=== PATIENT | female | born 1950 | race Caucasian/White ===

== ENCOUNTER 2017-10-07 10:11 | Emergency (ER) | payer BC, MEDICARE ==
[2017-10-07 10:27] VITALS: RESP 18; TEMP 98.1
--- NOTE | 2017-10-07 10:40 | ED ---
General Adult HPI - General Chief complaint: Fall Stated complaint: Fall Time Seen by Provider: 10/07/17 10:30 Source: patient, RN notes reviewed Mode of arrival: ambulatory Limitations: no limitations - History of Present Illness Initial comments: Patient 67-year-old female presented to the emergency room today with a chief complaint of a fall that occurred 1 week ago. She states she got out of the shower when she slipped falling down onto the ground. Patient does not that she landed on the right knee. She does admit that she went to urgent care and had x-rays obtained of the right knee she was told everything was negative. Patient states still experiencing pain to the right knee worse with certain movements and with bearing weight. Patient also admits that over the last 4 days she's been expressing some pain to the left lateral ribs. Patient states it's worse with certain movements or if she coughs or sneezes. Patient denies any other complaints or symptoms. Patient denies any recent fever, chills, shortness of breath, chest pain, back pain, abdominal pain, nausea or vomiting, constipation or diarrhea, headaches or visual changes, or any other complaints. - Related Data Allergies Allergy/AdvReac Type Severity Reaction Status Date / Time No Known Allergies Allergy Verified 10/07/17 10:27 Review of Systems ROS Statement: Those systems with pertinent positive or pertinent negative responses have been documented in the HPI. ROS Other: All systems not noted in ROS Statement are negative. Past Medical History Additional Past Medical History / Comment(s): osteoporosis History of Any Multi-Drug Resistant Organisms: MRSA Date of last positivie culture/infection: 2011 MDRO Source:: leg Past Surgical History: Orthopedic Surgery Additional Past Surgical History / Comment(s): left ankle, right knee, right wrist Past Psychological History: No Psychological Hx Reported Smoking Status: Current every day smoker Past Alcohol Use History: Occasional Past Drug Use History: None Reported General Exam - General Exam Comments Initial Comments: General: The patient is awake and alert, in no distress, and does not appear acutely ill. Eye: Pupils are equal, round and reactive to light, extra-ocular movements are intact. No nystagmus. There is normal conjunctiva bilaterally. No signs of icterus. Ears, nose, mouth and throat: There are moist mucous membranes and no oral lesions. Neck: The neck is supple, there is no tenderness or JVD. Cardiovascular: There is a regular rate and rhythm. No murmur, rub or gallop is appreciated. Respiratory: Lungs are clear to auscultation, respirations are non-labored, breath sounds are equal. No wheezes, stridor, rales, or rhonchi. Musculoskeletal: Normal ROM. Mild tenderness over the anterior aspect of the right knee on exam. Patient does have tenderness over the left lateral ribs. No step-off deformity. Strength 5/5. Sensation intact. Pulses equal bilaterally 2+. Neurological: A&O x 3. CN II-XII intact, There are no obvious motor or sensory deficits. Coordination appears grossly intact. Speech is normal. Skin: Skin is warm and dry and no rashes or lesions are noted. Psychiatric: Cooperative, appropriate mood & affect, normal judgment. Limitations: no limitations Course Vital Signs 10/07/17 10:20 Temperature 98.1 F Pulse Rate 87 Respiratory 18 Rate Blood Pressure 129/86 O2 Sat by Pulse 97 Oximetry Medical Decision Making - Medical Decision Making Patient reexamined at this time shows no signs of distress. Patient does have tenderness over the left lateral ribs on exam. X-ray revealing no displaced rib fracture. Patient's x-ray of the left knee is unremarkable. She is advised follow-up with orthopedics for left knee. Be treated for rib fracture given incentive spirometer. Advised Tylenol/ibuprofen for pain control. Advised limited range of motion the area should movements and if she needs to cough or sneeze. Advised returning if any symptoms increase or worsen or for any other concerns. Disposition Clinical Impression: Rib fracture, Knee pain, Fall Disposition: HOME SELF-CARE Condition: Good Instructions: Rib Fracture (ED) Additional Instructions: Please use medication as discussed. Please follow-up with orthopedic/family doctor in the next 2-5 days of symptoms have not improved. Please return to emergency room if the symptoms increase or worsen or for any other concerns. Is patient prescribed a controlled substance at d/c from ED?: No Referrals: Elmer Combs MD [Primary Care Provider] - 1-2 days Time of Disposition: 11:42
--- NOTE | 2017-10-07 11:24 | XR ---
EXAMINATION TYPE: XR knee complete RT DATE OF EXAM: 10/07/2017 CLINICAL HISTORY: Right knee pain after a fall TECHNIQUE: Three views of the right knee are obtained. COMPARISON: None. FINDINGS: There is no acute fracture/dislocation evident in right knee. Surgical fixation of a prior right patellar fracture is seen. Very small fabellae are incidentally noted. Marginal osteophytosis is seen of the inferior patellar pole and very small osteophytes of the medial and lateral compartmen ts. The overlying soft tissue appears unremarkable. IMPRESSION: There is no acute fracture or dislocation in the right knee. Postsurgical changes the pa tella and mild tricompartmental arthrosis.
--- NOTE | 2017-10-07 11:27 | XR ---
EXAMINATION TYPE: XR ribs LT w pa chest xray DATE OF EXAM: 10/07/2017 CLINICAL HISTORY: Left rib pain after a fall TECHNIQUE: Single frontal view of the chest is obtained. Additionally frontal and lateral views of th e left ribs were obtained. COMPARISON: None FINDINGS: There is no focal air space opacity, pleural effusion, or pneumothorax seen. The cardiac silhouette size is within normal limits. The osseous structures are grossly intact. No acute displa alon left rib fracture is seen. No callused healed rib fracture deformity is identified. Mild biapical pleural-parenchymal thickening is noted. IMPRESSION: No acute cardiopulmonary process. No acute displaced left rib fracture or healed calluse d rib fracture deformity
[2017-10-07 11:55] VITALS: BP 120/88; PULSE 63
== END 2017-10-07 11:55 | disposition home or self-care (01) ==
LOC: EC 10:11
DX: S22.32XA Fracture of one rib, left side, initial encounter for closed fracture (principal); M25.561 Pain in right knee; F17.200 Nicotine dependence, unspecified, uncomplicated; Z86.14 Personal history of Methicillin resistant Staphylococcus aureus infection; W01.0XXA Fall on same level from slipping, tripping and stumbling without subsequent striking against object, initial encounter; Y92.009 Unspecified place in unspecified non-institutional (private) residence as the place of occurrence of the external cause
CPT/HCPCS: 99283

== ENCOUNTER 2018-01-17 17:00 | Emergency (ER) | payer MEDICARE ==
[2018-01-17 18:24] VITALS: TEMP 98.5
[2018-01-17] MEDS ORDERED: HYDROcodone/APAP 5-325MG 1 EACH TAB PO STA ×2 (20:22→21:14)
[2018-01-17] MEDS ORDERED: RX INFO: IV CONTRAST WAS GIVEN 1 EACH MISC MISCELLANE PRN (21:11)
[2018-01-17 21:39] LABS: Basophils # (A) 0.1 k/uL (0-0.2); Basophils % (A) 1 %; Eosinophils # (A) 0.2 k/uL (0-0.7); Eosinophils % (A) 3 %; HCT 41.2 % (34.0-46.0); HGB 13.9 gm/dL (11.4-16.0); Lymphocytes # (A) 1.7 k/uL (1.0-4.8); Lymphocytes % (A) 20 %; MCH 33.1 pg (25.0-35.0); MCHC 33.7 g/dL (31.0-37.0); MCV 98.4 fL (80.0-100.0); Mean Platelet Volume 7.4; Monocytes # (A) 0.4 k/uL (0-1.0); Monocytes % (A) 5 %; Neutrophils % (A) 70 %; Platelet Count 245 k/uL (150-450); RBC 4.19 m/uL (3.80-5.40); RDW 12.7 % (11.5-15.5); WBC 8.5 k/uL (3.8-10.6)
--- NOTE | 2018-01-17 21:40 | ED ---
General Adult HPI - General Chief complaint: Extremity Injury, Lower Stated complaint: hip & leg pain Source: patient, RN notes reviewed, old records reviewed Mode of arrival: EMS Limitations: no limitations - History of Present Illness Initial comments: 67-year-old female patient with no pertinent past history presents to ED with 2 days of left hip/thigh pain. Patient states that she has not suffered any recent trauma, falls, or heavy lifting. Patient was seen today at [facility]. Patient presented at this hospital for a previous is scheduled appointment to have a upper and lower extremity venous Doppler, as well as YAMILKA. Patient reports that her venous Doppler was negative for DVT, YAMILKA did not display any peripheral artery disease. Patient was having this left hip and thigh pain at the time of her appointment earlier today, so she presented to the ED. Patient states that at the ED they evaluated her, give her plain films, give her Toradol shot, she states that it did not relieve any of her pain. Patient presents here for pain control. Patient denies fever/ chills, nausea vomiting diarrhea, chest pain, shortness breath, abdominal pain, back pain, weakness, paresthesias, loss of bowel or bladder control. Systemic: Pt denies fatigue, myalgia, fever/chills, rash. Pt denies weakness, night sweats, weight loss. Neuro: Pt denies headache, visual disturbances, syncope or pre-syncope. HEENT: Pt denies ocular discharge or irritation, otalgia, rhinorrhea, pharyngitis or notable lymphadenopathy. Cardiopulmonary: Pt denies chest pain, SOB, heart palpitations, dyspnea on exertion. Abdominal/GI: Pt denies abdominal pain, n/v/d. : Pt denies dysuria, burning w/ urination, frequency/urgency. Denies new onset urinary or bowel incontinence. MSK: Pt denies myalgia, loss of strength or function in extremities. - Related Data Previous Rx's Medication Instructions Recorded Ibuprofen [Motrin] 600 mg PO Q6HR PRN #20 day 01/18/18 Allergies Allergy/AdvReac Type Severity Reaction Status Date / Time No Known Allergies Allergy Verified 01/17/18 18:24 Review of Systems ROS Statement: Those systems with pertinent positive or pertinent negative responses have been documented in the HPI. ROS Other: All systems not noted in ROS Statement are negative. Past Medical History Additional Past Medical History / Comment(s): osteoporosis History of Any Multi-Drug Resistant Organisms: MRSA Date of last positivie culture/infection: 2011 MDRO Source:: leg Past Surgical History: Orthopedic Surgery Additional Past Surgical History / Comment(s): left ankle, right knee, right wrist Past Psychological History: No Psychological Hx Reported Smoking Status: Current every day smoker Past Alcohol Use History: Occasional Past Drug Use History: None Reported General Exam - General Exam Comments Initial Comments: Constitutional: NAD, AOX3, Pt has pleasant affect. HEENT: NC/AT, trachea midline, neck supple, no lymphadenopathy. Posterior pharynx non erythematous, without exudates. External ears appear normal, without discharge. Mucous membranes moist. Eyes PERRLA, EOM intact. There is no scleral icterus. No pallor noted. Cardiopulmonary: RRR, no murmurs, rubs or gallops, no JVD noted. Lungs CTAB in anterior and posterior palmer. No peripheral edema. Abdominal exam: Abdomen soft and non-distended. Abdomen non-tender to palpation in all 4 quadrants. Bowel sounds active in LLQ. No hepatosplenomegaly. Neuro: CN II-XII intact. MSK: Dorsalis pedis, posterior tibialis pulse +2 bilaterally. No cervical, thoracic, lumbar spine tenderness to palpation. No paraspinal tenderness to palpation. Hips bilaterally no tenderness to palpation. Left lateral thigh mildly tender to palpation. Patient ambulatory. Patient has full sensation in lower extremities. 5 out of 5 psoas and quadriceps strength bilaterally. 2 out of 4 patellar and occasional reflex bilaterally. Torso, back, lower extremities examined extensively, no erythema, no streaking, no cellulitis, no discharge. Posterior calf and thigh nontender to palpation. Lenore sign negative bilaterally. No unilateral leg swelling, no erythema. Limitations: no limitations Course Vital Signs 01/17/18 01/17/18 18:19 21:48 Temperature 98.5 F Pulse Rate 78 74 Respiratory 16 18 Rate Blood Pressure 169/65 147/77 O2 Sat by Pulse 94 L 99 Oximetry Medical Decision Making - Medical Decision Making 67-year-old female patient presents to ED with atraumatic left hip, thigh pain. Patient was seen at [facility] earlier in the day for this problem, no acute findings were found at that visit per patient. Patient presents to ED today, primarily for pain control, further evaluation. Physical exam displayed Dorsalis pedis, posterior tibialis pulse +2 bilaterally. No cervical, thoracic , lumbar spine tenderness to palpation. No paraspinal tenderness to palpation. Hips bilaterally no tenderness to palpation. Left lateral thigh mildly tender to palpation. Patient ambulatory. Patient has full sensation in lower extremities. 5 out of 5 psoas and quadriceps strength bilaterally. 2 out of 4 patellar and occasional reflex bilaterally. Torso, back, lower extremities examined extensively, no erythema, no streaking, no cellulitis, no discharge. Posterior calf and thigh nontender to palpation. Lenore sign negative bilaterally. No unilateral leg swelling, no erythema. CBC and CMP unremarcable. Plain film of left hip did not display acute process. Femur CT did not display acute process. Bilateral duplex venous ultrasound not displaying DVT. Because of this pain likely musculoskeletal. Patient to be given a referral to orthopedic surgeon for further evaluation. Patient given strict return precautions patient to return if any signs symptoms develop including, worsening pain, fever/chills, nausea vomiting diarrhea, loss of bowel or bladder control, any other new signs or symptoms. Case discussed with Dr. Rivers. - Lab Data Result diagrams: 01/17/18 21:28 01/17/18 21:28 Lab Results 01/17/18 01/17/18 Range/Units 21:28 21:28 WBC 8.5 (3.8-10.6) k/uL RBC 4.19 (3.80-5.40) m/uL Hgb 13.9 (11.4-16.0) gm/dL Hct 41.2 (34.0-46.0) % MCV 98.4 (80.0-100.0) fL MCH 33.1 (25.0-35.0) pg MCHC 33.7 (31.0-37.0) g/dL RDW 12.7 (11.5-15.5) % Plt Count 245 (150-450) k/uL Neutrophils % 70 % Lymphocytes % 20 % Monocytes % 5 % Eosinophils % 3 % Basophils % 1 % Neutrophils # 6.0 (1.3-7.7) k/uL Lymphocytes # 1.7 (1.0-4.8) k/uL Monocytes # 0.4 (0-1.0) k/uL Eosinophils # 0.2 (0-0.7) k/uL Basophils # 0.1 (0-0.2) k/uL Sodium 139 (137-145) mmol/L Potassium 4.0 (3.5-5.1) mmol/L Chloride 109 H (98-107) mmol/L Carbon Dioxide 24 (22-30) mmol/L Anion Gap 6 mmol/L BUN 14 (7-17) mg/dL Creatinine 0.83 (0.52-1.04) mg/dL Est GFR (CKD-EPI)AfAm 86 (>60 ml/min/1.73 sqM) Est GFR (CKD-EPI)NonAf 75 (>60 ml/min/1.73 sqM) Glucose 120 H (74-99) mg/dL Calcium 9.8 (8.4-10.2) mg/dL Total Bilirubin 0.5 (0.2-1.3) mg/dL AST 29 (14-36) U/L ALT 44 (9-52) U/L Alkaline Phosphatase 64 (38-126) U/L Total Protein 6.4 (6.3-8.2) g/dL Albumin 4.0 (3.5-5.0) g/dL Disposition Clinical Impression: Hip pain Disposition: HOME SELF-CARE Condition: Good Instructions: Hip Pain (ED), Arthralgia (ED) Additional Instructions: Patient to adhere to previously discussed treatment plan and will take medication(s) as directed. Patient to follow up with PCP in 1-2 days. Patient to return to ED if symptoms do not improve. Prescriptions: Ibuprofen [Motrin] 600 mg PO Q6HR PRN #20 day PRN Reason: Pain Is patient prescribed a controlled substance at d/c from ED?: No Referrals: Elmer Combs MD [Primary Care Provider] - 1-2 days Neo Rodas DO [Doctor of Osteopathic Medicine] - 1-2 days Time of Disposition: 00:06
[2018-01-17 21:48] LABS: Calcium 9.8 mg/dL (8.4-10.2); Total Bilirubin 0.5 mg/dL (0.2-1.3); Total Protein 6.4 g/dL (6.3-8.2)
[2018-01-17 21:49] VITALS: BP 147/77; PULSE 74; RESP 18
--- NOTE | 2018-01-17 22:40 | XR ---
EXAMINATION TYPE: XR Hip Complete LT DATE OF EXAM: 01/17/2018 COMPARISON: NONE HISTORY: Hip pain TECHNIQUE: 2 views FINDINGS: I see no fracture nor dislocation. Acetabulum is intact. Proximal left femur is intact. The re is no sign of hip dysplasia. IMPRESSION: Negative left hip exam.
--- NOTE | 2018-01-17 22:58 | CT ---
EXAMINATION TYPE: CT femur LT w con DATE OF EXAM: 01/17/2018 COMPARISON: None HISTORY: LT femur pain no injury CT DLP: 428.3 mGycm Automated exposure control for dose reduction was used. CONTRAST: Performed with IV Contrast, patient injected with 100 mL of Isovue 300. FINDINGS: Multiple axial sections were obtained from the level of the acetabulum to the distal femoral metaphys is with intravenous contrast. The left hip joint is intact. Acetabulum is intact. I see no hip fracture. The visualized femur appea rs intact without evidence of a fracture. I see no focal bone destruction. I see no evidence of a sof t tissue mass. There is some atherosclerotic calcification in the distal left femoral artery. There i s no pathologic fluid collection. IMPRESSION: MILD ATHEROSCLEROTIC VASCULAR DISEASE. NO EVIDENCE OF A SOFT TISSUE MASS. NO FRACTURE. I DO NOT SEE A CAUSE FOR FEMUR PAIN.
--- NOTE | 2018-01-17 23:58 | US ---
EXAMINATION TYPE: US venous doppler duplex LE BI DATE OF EXAM: 01/17/2018 11:38 PM COMPARISON: NONE CLINICAL HISTORY: Pain. Pain left hip. SIDE PERFORMED: Bilateral TECHNIQUE: The lower extremity deep venous system is examined utilizing real time linear array sonog kody with graded compression, doppler sonography and color-flow sonography. VESSELS IMAGED: External Iliac Vein (EIV) Common Femoral Vein Deep Femoral Vein Greater Saphenous Vein * Femoral Vein Popliteal Vein Small Saphenous Vein * Proximal Calf Veins (* superficial vessels) Right Leg: Negative for DVT Left Leg: Negative for DVT No evidence of DVT bilateral legs. IMPRESSION: Normal bilateral leg duplex venous sonogram.
--- NOTE | 2018-01-18 00:08 | ED ---
Medical Decision Making - Medical Decision Making driving home - Lab Data Result diagrams: 01/17/18 21:28 01/17/18 21:28 Lab Results 01/17/18 01/17/18 Range/Units 21:28 21:28 WBC 8.5 (3.8-10.6) k/uL RBC 4.19 (3.80-5.40) m/uL Hgb 13.9 (11.4-16.0) gm/dL Hct 41.2 (34.0-46.0) % MCV 98.4 (80.0-100.0) fL MCH 33.1 (25.0-35.0) pg MCHC 33.7 (31.0-37.0) g/dL RDW 12.7 (11.5-15.5) % Plt Count 245 (150-450) k/uL Neutrophils % 70 % Lymphocytes % 20 % Monocytes % 5 % Eosinophils % 3 % Basophils % 1 % Neutrophils # 6.0 (1.3-7.7) k/uL Lymphocytes # 1.7 (1.0-4.8) k/uL Monocytes # 0.4 (0-1.0) k/uL Eosinophils # 0.2 (0-0.7) k/uL Basophils # 0.1 (0-0.2) k/uL Sodium 139 (137-145) mmol/L Potassium 4.0 (3.5-5.1) mmol/L Chloride 109 H (98-107) mmol/L Carbon Dioxide 24 (22-30) mmol/L Anion Gap 6 mmol/L BUN 14 (7-17) mg/dL Creatinine 0.83 (0.52-1.04) mg/dL Est GFR (CKD-EPI)AfAm 86 (>60 ml/min/1.73 sqM) Est GFR (CKD-EPI)NonAf 75 (>60 ml/min/1.73 sqM) Glucose 120 H (74-99) mg/dL Calcium 9.8 (8.4-10.2) mg/dL Total Bilirubin 0.5 (0.2-1.3) mg/dL AST 29 (14-36) U/L ALT 44 (9-52) U/L Alkaline Phosphatase 64 (38-126) U/L Total Protein 6.4 (6.3-8.2) g/dL Albumin 4.0 (3.5-5.0) g/dL Disposition Clinical Impression: Hip pain Disposition: HOME SELF-CARE Condition: Good Instructions: Arthralgia (ED), Hip Pain (ED) Additional Instructions: Patient to adhere to previously discussed treatment plan and will take medication(s) as directed. Patient to follow up with PCP in 1-2 days. Patient to return to ED if symptoms do not improve. Prescriptions: Ibuprofen [Motrin] 600 mg PO Q6HR PRN #20 day PRN Reason: Pain Is patient prescribed a controlled substance at d/c from ED?: No Referrals: Elmer Combs MD [Primary Care Provider] - 1-2 days Neo Rodas DO [Doctor of Osteopathic Medicine] - 1-2 days
== END 2018-01-18 00:10 | disposition home or self-care (01) ==
LOC: EC 17:00
DX: M25.552 Pain in left hip (principal); M79.652 Pain in left thigh; M81.0 Age-related osteoporosis without current pathological fracture; F17.200 Nicotine dependence, unspecified, uncomplicated; Z86.14 Personal history of Methicillin resistant Staphylococcus aureus infection
CPT/HCPCS: 36415; 80053; 85025; 73502; 93970; 73701; 99285; Q9967

== ENCOUNTER → 2018-01-24 | Outpatient (CLI) | payer OTHER ==
--- NOTE | 2018-01-24 17:42 | MR ---
EXAMINATION TYPE: MR lumbar spine wo/w con DATE OF EXAM: 01/24/2018 COMPARISON: None HISTORY: LBP, LLE radic, disc disease TECHNIQUE: Multiplanar, multisequence images of the lumbar spine were acquired utilizing 7.5 mL intravenous Gada vist gadolinium contrast. The lumbar vertebra have normal alignment. There is some mild posterior disc bulging at L2-3 L4-5. Th ere is mild narrowing of lumbar disc spaces. I see no bony destructive process. There is no compressi on fracture. The lumbar nerve roots appear normal. Neural foramina are fairly well-maintained. There is no lumbar paraspinal mass. The contrast images show no pathologic enhancement. There is no spinal stenosis. IMPRESSION: There are small posterior disc bulges at L2-3 and L4-5. No spinal stenosis. No fracture. Minor degene rative disc changes.
== END | disposition home or self-care (01) ==
LOC: RADMRIMAIN 15:20
PROVIDERS: ATTEND Emergency Medicine
DX: M51.26 Other intervertebral disc displacement, lumbar region (principal); M51.36 Other intervertebral disc degeneration, lumbar region
CPT/HCPCS: 72158; A9585

== ENCOUNTER 2018-11-22 19:14 | Emergency (ER) | payer MEDICARE ==
[2018-11-22 19:21] VITALS: RESP 18; TEMP 97.7
[2018-11-22] MEDS ORDERED: LORazepam 2 MG/ML INJ IV STA (19:46)
[2018-11-22] MEDS ORDERED: SODIUM CHLORIDE 0.9% 1,000 ML IV STA ×2 (19:46)
[2018-11-22] MEDS ORDERED: ONDANSETRON 4 MG/2 ML VIAL IVP STA (19:46)
--- NOTE | 2018-11-22 19:49 | ED ---
Anxiety HPI - General Chief Complaint: Anxiety Stated Complaint: Anxiety, panic attack Time Seen by Provider: 11/22/18 19:27 Source: patient, RN notes reviewed, old records reviewed Mode of arrival: wheelchair - History of Present Illness Initial Comments: This is a 68-year-old female the ER for evaluation shortness evaluation of severe anxiety feels like she is having slurred a panic attack versus mild akua type symptoms. She states she did sleep well last night denies any street drugs she was taken new medication Pristiq for depression is been going on for about a month, multiple side effects are familiar with the medication she feels like she is experienced. She also is been increasing or drinking as of late up to 2 beers a day. Patient is having 2 beers a day every day. Denies homicidal or suicidal thoughts. She feels a crepitates diminishing she's not drinking as much water she should. She states she has had steroids in the past and she has felt like this will taking steroids MD Complaint: anxiety, heart racing, other (Nausea) -: days(s) Symptoms: palpitations Place: home Previous History of Same: Yes Severity: moderate Quality: constant Provoking factors: emotional stress, medication change Improves With: nothing Worsens With: medication Associated symptoms: shortness of breath, palpitations, nausea/vomiting, weakness - Related Data Home Medications: Home Medications Medication Instructions Recorded Confirmed Adalimumab [Humira Pen] 40 mg SQ Q14D 11/22/18 11/22/18 Atorvastatin Calcium [Lipitor] 40 mg PO HS 11/22/18 11/22/18 Cyanocobalamin (Vitamin B-12) 2,500 mcg PO DAILY 11/22/18 11/22/18 [Vitamin B-12] Desvenlafaxine Succinate [Pristiq 50 mg PO DAILY 11/22/18 11/22/18 ER] Allergies/Adverse Reactions: Allergies Allergy/AdvReac Type Severity Reaction Status Date / Time prednisone AdvReac Hallucinati Verified 11/22/18 20:12 ons tide laundry detergent Allergy Rash/Hives Uncoded 11/22/18 20:12 Review of Systems ROS Statement: Those systems with pertinent positive or pertinent negative responses have been documented in the HPI. ROS Other: All systems not noted in ROS Statement are negative. Past Medical History Additional Past Medical History / Comment(s): osteoporosis History of Any Multi-Drug Resistant Organisms: MRSA Date of last positivie culture/infection: 2011 MDRO Source:: leg Past Surgical History: Orthopedic Surgery Additional Past Surgical History / Comment(s): left ankle, right knee, right wrist Past Psychological History: Anxiety Smoking Status: Current every day smoker Past Alcohol Use History: Occasional Past Drug Use History: None Reported General Exam Limitations: no limitations General appearance: alert, in no apparent distress, anxious Head exam: Present: atraumatic, normocephalic, normal inspection Eye exam: Present: normal appearance, PERRL, EOMI. Absent: scleral icterus, conjunctival injection, periorbital swelling ENT exam: Present: normal exam, mucous membranes moist Neck exam: Present: normal inspection. Absent: tenderness, meningismus, lymphadenopathy Respiratory exam: Present: normal lung sounds bilaterally. Absent: respiratory distress, wheezes, rales, rhonchi, stridor Cardiovascular Exam: Present: regular rate, normal rhythm, normal heart sounds. Absent: systolic murmur, diastolic murmur, rubs, gallop, clicks GI/Abdominal exam: Present: soft, normal bowel sounds. Absent: distended, tenderness, guarding, rebound, rigid Extremities exam: Present: normal inspection, full ROM, normal capillary refill. Absent: tenderness, pedal edema, joint swelling, calf tenderness Back exam: Present: normal inspection Neurological exam: Present: alert, oriented X3, CN II-XII intact Psychiatric exam: Present: normal affect, normal mood Skin exam: Present: warm, dry, intact, normal color. Absent: rash Course Vital Signs 11/22/18 11/22/18 19:17 20:37 Temperature 97.7 F Pulse Rate 92 82 Respiratory 18 18 Rate Blood Pressure 163/83 140/89 O2 Sat by Pulse 100 95 Oximetry - Reevaluation(s) Reevaluation #1: 11/22/18 19:48 Medical record is reviewed Reevaluation #2: 11/22/18 20:20 Patient feeling better with anxiety medication Reevaluation #3: 11/22/18 21:01 Symptoms are drastically improved remain improved not homicidal or suicidal Medical Decision Making - Medical Decision Making 68 female the ER for evaluation presents today for evaluation regards to anxiety. Patient possible medication reaction. Patient feeling improved currently. Patient can be discharged home - Lab Data Result diagrams: 11/22/18 20:05 11/22/18 20:05 Lab Results 11/22/18 11/22/18 11/22/18 Range/Units 20:05 20:05 20:05 WBC 8.2 (3.8-10.6) k/uL RBC 4.39 (3.80-5.40) m/uL Hgb 14.1 (11.4-16.0) gm/dL Hct 43.4 (34.0-46.0) % MCV 98.8 (80.0-100.0) fL MCH 32.2 (25.0-35.0) pg MCHC 32.6 (31.0-37.0) g/dL RDW 12.9 (11.5-15.5) % Plt Count 286 (150-450) k/uL Neutrophils % 64 % Lymphocytes % 26 % Monocytes % 5 % Eosinophils % 2 % Basophils % 1 % Neutrophils # 5.3 (1.3-7.7) k/uL Lymphocytes # 2.1 (1.0-4.8) k/uL Monocytes # 0.4 (0-1.0) k/uL Eosinophils # 0.2 (0-0.7) k/uL Basophils # 0.1 (0-0.2) k/uL Sodium 139 (137-145) mmol/L Potassium 3.9 (3.5-5.1) mmol/L Chloride 105 (98-107) mmol/L Carbon Dioxide 24 (22-30) mmol/L Anion Gap 10 mmol/L BUN 16 (7-17) mg/dL Creatinine 0.69 (0.52-1.04) mg/dL Est GFR (CKD-EPI)AfAm >90 (>60 ml/min/1.73 sqM) Est GFR (CKD-EPI)NonAf >90 (>60 ml/min/1.73 sqM) Glucose 91 (74-99) mg/dL Calcium 9.8 (8.4-10.2) mg/dL Phosphorus 3.9 (2.5-4.5) mg/dL Magnesium 2.2 (1.6-2.3) mg/dL Total Bilirubin 0.7 (0.2-1.3) mg/dL AST 29 (14-36) U/L ALT 35 (9-52) U/L Alkaline Phosphatase 107 (38-126) U/L Troponin I <0.012 (0.000-0.034) ng/mL Total Protein 7.5 (6.3-8.2) g/dL Albumin 4.8 (3.5-5.0) g/dL Serum Alcohol <10 mg/dL - EKG Data -: EKG Interpreted by Me (EKG shows sinus rhythm rate of 85, NH 144, QRS 86, QTc 473) Disposition Clinical Impression: Acute anxiety Disposition: HOME SELF-CARE Condition: Good Instructions (If sedation given, give patient instructions): Generalized Anxiety Disorder (ED) Is patient prescribed a controlled substance at d/c from ED?: No Referrals: Karma Metzger DO [Primary Care Provider] - 1-2 days
[2018-11-22 20:17] LABS: Basophils # (A) 0.1 k/uL (0-0.2); Basophils % (A) 1 %; Eosinophils # (A) 0.2 k/uL (0-0.7); Eosinophils % (A) 2 %; HCT 43.4 % (34.0-46.0); HGB 14.1 gm/dL (11.4-16.0); Lymphocytes # (A) 2.1 k/uL (1.0-4.8); Lymphocytes % (A) 26 %; MCH 32.2 pg (25.0-35.0); MCHC 32.6 g/dL (31.0-37.0); MCV 98.8 fL (80.0-100.0); Mean Platelet Volume 6.9; Monocytes # (A) 0.4 k/uL (0-1.0); Monocytes % (A) 5 %; Neutrophils # (A) 5.3 k/uL (1.3-7.7); Neutrophils % (A) 64 %; Platelet Count 286 k/uL (150-450); RBC 4.39 m/uL (3.80-5.40); RDW 12.9 % (11.5-15.5); WBC 8.2 k/uL (3.8-10.6)
[2018-11-22 20:32] LABS: ALT 35 U/L (9-52); AST 29 U/L (14-36); African American GFR (CKD) >90 (>60 ml/min/1.73 sqM); Albumin 4.8 g/dL (3.5-5.0); Alcohol <10 mg/dL; Alkaline Phosphatase 107 U/L (38-126); Anion Gap 10 mmol/L; Blood Urea Nitrogen 16 mg/dL (7-17); Calcium 9.8 mg/dL (8.4-10.2); Carbon Dioxide 24 mmol/L (22-30); Chloride 105 mmol/L (98-107); Glucose 91 mg/dL (74-99); Magnesium 2.2 mg/dL (1.6-2.3); Phosphorus 3.9 mg/dL (2.5-4.5); Potassium 3.9 mmol/L (3.5-5.1); Sodium 139 mmol/L (137-145); Total Bilirubin 0.7 mg/dL (0.2-1.3); Total Protein 7.5 g/dL (6.3-8.2)
[2018-11-22 20:38] VITALS: BP 140/89; PULSE 82
== END 2018-11-22 21:35 | disposition home or self-care (01) ==
LOC: EC 19:14
DX: F41.9 Anxiety disorder, unspecified (principal); M81.0 Age-related osteoporosis without current pathological fracture; F32.9 Major depressive disorder, single episode, unspecified; F17.200 Nicotine dependence, unspecified, uncomplicated; Z88.8 Allergy status to other drugs, medicaments and biological substances; Z91.048 Other nonmedicinal substance allergy status; Z79.899 Other long term (current) drug therapy; Z86.14 Personal history of Methicillin resistant Staphylococcus aureus infection
CPT/HCPCS: 36415; 93005; 80053; 83735; 84100; 84484; 85025; 99284; 96374; 96375; 96361; G0480; J2060; J2405; 80320

== ENCOUNTER 2019-01-05 23:29 | Emergency (ER) | payer MEDICARE ==
[2019-01-05] MEDS ORDERED: SODIUM CHLORIDE 0.9% 1,000 ML IV STA (23:44)
[2019-01-05] MEDS ORDERED: FAMOTIDINE 20 MG/2 ML VIAL IV STA (23:45)
[2019-01-05] MEDS ORDERED: LORazepam 2 MG/ML INJ IV STA (23:45)
[2019-01-05 23:48] VITALS: RESP 18
--- NOTE | 2019-01-05 23:48 | ED ---
General Adult HPI - General Stated complaint: Not feeling well Time Seen by Provider: 01/05/19 23:34 Source: patient, EMS, RN notes reviewed Mode of arrival: EMS Limitations: no limitations - History of Present Illness Initial comments: Patient is a pleasant 68-year-old female presenting to the emergency department for not feeling well. Patient took her first dose of metoprolol, 25 mg around 8 AM this morning. Patient feels her symptoms may be related to that or anxiety. Patient mentions several times that she feels anxious. Patient states over the past few hours she has not felt well. Patient does have some achiness of her muscles. Patient has mild rhinorrhea. Patient drinks 3 beers today. Patient normally drinks 2 beers. Patient states when she occasionally drinks 3 beers she does get a headache like this. Patient states she does have a mild headache that is rated 3/10. Not sudden onset. Patient states she has some mild nausea. No vomiting. No abdominal pain. No chest pain or dyspnea. No confusion. - Related Data Home Medications Medication Instructions Recorded Confirmed Adalimumab [Humira Pen] 40 mg SQ Q14D 11/22/18 11/22/18 Atorvastatin Calcium [Lipitor] 40 mg PO HS 11/22/18 11/22/18 Cyanocobalamin (Vitamin B-12) 2,500 mcg PO DAILY 11/22/18 11/22/18 [Vitamin B-12] Desvenlafaxine Succinate [Pristiq 50 mg PO DAILY 11/22/18 11/22/18 ER] Previous Rx's Medication Instructions Recorded amLODIPine [Norvasc] 5 mg PO DAILY #4 tab 01/06/19 Allergies Allergy/AdvReac Type Severity Reaction Status Date / Time prednisone AdvReac Hallucinati Verified 11/22/18 20:12 ons tide laundry detergent Allergy Rash/Hives Uncoded 11/22/18 20:12 Review of Systems ROS Statement: Those systems with pertinent positive or pertinent negative responses have been documented in the HPI. ROS Other: All systems not noted in ROS Statement are negative. Constitutional: Denies: fever Eyes: Denies: eye pain ENT: Denies: ear pain Respiratory: Denies: cough Cardiovascular: Denies: chest pain Endocrine: Denies: fatigue Gastrointestinal: Reports: nausea. Denies: abdominal pain, vomiting Genitourinary: Denies: dysuria Musculoskeletal: Denies: back pain Skin: Denies: rash Neurological: Reports: as per HPI. Denies: weakness, confusion Past Medical History Additional Past Medical History / Comment(s): osteoporosis History of Any Multi-Drug Resistant Organisms: MRSA Date of last positivie culture/infection: 2011 MDRO Source:: leg Past Surgical History: Orthopedic Surgery Additional Past Surgical History / Comment(s): left ankle, right knee, right wrist Past Psychological History: Anxiety Smoking Status: Current every day smoker Past Alcohol Use History: Occasional Past Drug Use History: None Reported General Exam Limitations: no limitations General appearance: alert, in no apparent distress Head exam: Present: normocephalic Eye exam: Present: normal appearance, PERRL ENT exam: Present: normal oropharynx Neck exam: Present: normal inspection Respiratory exam: Present: normal lung sounds bilaterally Cardiovascular Exam: Present: regular rate, normal rhythm GI/Abdominal exam: Present: soft. Absent: tenderness Extremities exam: Present: normal inspection Neurological exam: Present: alert, oriented X3, CN II-XII intact. Absent: motor sensory deficit Expanded Neurological exam: Present: protecting the airway Patient oriented to: Present: person, place, time Speech: Present: fluid speech Sensory exam: Upper Extremity Light Touch: Normal, Lower Extremity Light Touch: Normal Motor strength exam: RUE: 5, LUE: 5, RLE: 5, LLE: 5 Eye Response: (4) open spontaneously Motor Response: (6) obeys commands Verbal Response: (5) oriented Psychiatric exam: Present: normal affect, normal mood Skin exam: Present: normal color Course Vital Signs 01/05/19 01/06/19 23:33 00:19 Temperature 97.9 F 98 F Pulse Rate 63 74 Respiratory 18 18 Rate Blood Pressure 178/102 O2 Sat by Pulse 94 L 94 L Oximetry Medical Decision Making - Medical Decision Making Patient reevaluated and is symptom-free following medication except for being slightly nauseated and drowsy. Patient denies any need for nausea medication. Patient and family updated on results and need for follow-up. Patient will receive a dose of Norvasc prior to discharge. They're advised close follow-up with primary care physician. - Lab Data Result diagrams: 01/05/19 23:59 01/05/19 23:59 Lab Results 01/05/19 01/05/19 Range/Units 23:59 23:59 WBC 7.7 (3.8-10.6) k/uL RBC 4.12 (3.80-5.40) m/uL Hgb 13.2 (11.4-16.0) gm/dL Hct 40.9 (34.0-46.0) % MCV 99.2 (80.0-100.0) fL MCH 32.0 (25.0-35.0) pg MCHC 32.3 (31.0-37.0) g/dL RDW 12.5 (11.5-15.5) % Plt Count 267 (150-450) k/uL Neutrophils % 67 % Lymphocytes % 22 % Monocytes % 6 % Eosinophils % 2 % Basophils % 1 % Neutrophils # 5.2 (1.3-7.7) k/uL Lymphocytes # 1.7 (1.0-4.8) k/uL Monocytes # 0.5 (0-1.0) k/uL Eosinophils # 0.2 (0-0.7) k/uL Basophils # 0.1 (0-0.2) k/uL Sodium 139 (137-145) mmol/L Potassium 3.7 (3.5-5.1) mmol/L Chloride 108 H (98-107) mmol/L Carbon Dioxide 24 (22-30) mmol/L Anion Gap 7 mmol/L BUN 10 (7-17) mg/dL Creatinine 0.66 (0.52-1.04) mg/dL Est GFR (CKD-EPI)AfAm >90 (>60 ml/min/1.73 sqM) Est GFR (CKD-EPI)NonAf >90 (>60 ml/min/1.73 sqM) Glucose 113 H (74-99) mg/dL Calcium 9.2 (8.4-10.2) mg/dL Magnesium 2.0 (1.6-2.3) mg/dL Total Bilirubin 0.4 (0.2-1.3) mg/dL AST 27 (14-36) U/L ALT 36 (9-52) U/L Alkaline Phosphatase 79 (38-126) U/L Total Protein 6.3 (6.3-8.2) g/dL Albumin 3.9 (3.5-5.0) g/dL Disposition Clinical Impression: Acute anxiety, Hypertension Disposition: HOME SELF-CARE Condition: Stable Instructions (If sedation given, give patient instructions): Generalized Anxiety Disorder (ED), Hypertension (ED) Additional Instructions: Please follow-up with primary care physician Tuesday. He will need to have blood pressure rechecked. Return for chest pain or shortness of breath, uncontrolled blood pressure, weakness or confusion, worsening symptoms or other concerns. Prescriptions: amLODIPine [Norvasc] 5 mg PO DAILY #4 tab Is patient prescribed a controlled substance at d/c from ED?: No Referrals: Karma Metzger DO [Primary Care Provider] - 1-2 days Time of Disposition: 00:51
[2019-01-06 00:22] LABS: Basophils # (A) 0.1 k/uL (0-0.2); Basophils % (A) 1 %; Eosinophils # (A) 0.2 k/uL (0-0.7); Eosinophils % (A) 2 %; HCT 40.9 % (34.0-46.0); HGB 13.2 gm/dL (11.4-16.0); Lymphocytes # (A) 1.7 k/uL (1.0-4.8); Lymphocytes % (A) 22 %; MCHC 32.3 g/dL (31.0-37.0); MCV 99.2 fL (80.0-100.0); Mean Platelet Volume 7.1; Monocytes # (A) 0.5 k/uL (0-1.0); Monocytes % (A) 6 %; Neutrophils # (A) 5.2 k/uL (1.3-7.7); Neutrophils % (A) 67 %; Platelet Count 267 k/uL (150-450); RBC 4.12 m/uL (3.80-5.40); RDW 12.5 % (11.5-15.5); WBC 7.7 k/uL (3.8-10.6)
[2019-01-06 00:35] LABS: ALT 36 U/L (9-52); AST 27 U/L (14-36); African American GFR (CKD) >90 (>60 ml/min/1.73 sqM); Albumin 3.9 g/dL (3.5-5.0); Alkaline Phosphatase 79 U/L (38-126); Anion Gap 7 mmol/L; Blood Urea Nitrogen 10 mg/dL (7-17); Calcium 9.2 mg/dL (8.4-10.2); Carbon Dioxide 24 mmol/L (22-30); Chloride 108 mmol/L (98-107); Glucose 113 mg/dL (74-99); Potassium 3.7 mmol/L (3.5-5.1); Sodium 139 mmol/L (137-145); Total Bilirubin 0.4 mg/dL (0.2-1.3); Total Protein 6.3 g/dL (6.3-8.2)
[2019-01-06] MEDS ORDERED: amLODIPine 5 MG TAB PO STA (00:49)
[2019-01-06 01:14] VITALS: BP 164/98; PULSE 76; TEMP 98.2
== END 2019-01-06 01:14 | disposition home or self-care (01) ==
LOC: EC 23:29
DX: F41.9 Anxiety disorder, unspecified (principal); I10 Essential (primary) hypertension; R11.0 Nausea; R40.0 Somnolence; M81.0 Age-related osteoporosis without current pathological fracture; F17.200 Nicotine dependence, unspecified, uncomplicated; Z79.899 Other long term (current) drug therapy; Z88.8 Allergy status to other drugs, medicaments and biological substances; Z91.048 Other nonmedicinal substance allergy status; Z86.14 Personal history of Methicillin resistant Staphylococcus aureus infection
CPT/HCPCS: 36415; 80053; 83735; 85025; 99284; 96374; 96375; 96361; J2060

== ENCOUNTER 2019-01-07 07:33 | Emergency (ER) | payer MEDICARE ==
[2019-01-07 07:52] VITALS: RESP 20; TEMP 98.2
[2019-01-07] MEDS ORDERED: SODIUM CHLORIDE 0.9% 1,000 ML IV STA (08:02)
--- NOTE | 2019-01-07 08:07 | ED ---
General Adult HPI - General Chief complaint: Recheck/Abnormal Lab/Rx Stated complaint: High BP Time Seen by Provider: 01/07/19 07:41 Source: patient, RN notes reviewed, old records reviewed, Caregiver Mode of arrival: ambulatory Limitations: no limitations - History of Present Illness Initial comments: Ginny is a 68-year-old female who presents emergency Department today for recheck for headache, and hypertension. Patient reports that she was seen emergency department 2 days ago, at that time she was evaluated for high blood pressure but came down on its own while she was in the ER. She states that today she is not had a chance to resume her new blood pressure medications. Patient reports that she woke up today with an onset of a headache at 4:30 in the morning. She took 2 Tylenol, drinks and coffee reports the headache is somewhat diminishing at this time. Incidental note that when discussing Patient if she had any leg swelling she reports that yesterday she was bit by her dog in the right calf. She reports bruising and swelling to the area. - Related Data Home Medications Medication Instructions Recorded Confirmed Adalimumab [Humira Pen] 40 mg SQ Q14D 11/22/18 11/22/18 Atorvastatin Calcium [Lipitor] 40 mg PO HS 11/22/18 11/22/18 Cyanocobalamin (Vitamin B-12) 2,500 mcg PO DAILY 11/22/18 11/22/18 [Vitamin B-12] Desvenlafaxine Succinate [Pristiq 50 mg PO DAILY 11/22/18 11/22/18 ER] Acetaminophen Tab [Tylenol Tab] 1,000 mg PO Q6HR PRN 01/07/19 01/07/19 Previous Rx's Medication Instructions Recorded amLODIPine [Norvasc] 5 mg PO DAILY #4 tab 01/06/19 Amoxicillin/Potassium Clav 1 tab PO BID #20 tab 01/07/19 [Augmentin 875-125 Tablet] Allergies Allergy/AdvReac Type Severity Reaction Status Date / Time prednisone AdvReac Hallucinati Verified 01/07/19 07:41 ons tide laundry detergent Allergy Rash/Hives Uncoded 01/07/19 07:41 Review of Systems ROS Statement: Those systems with pertinent positive or pertinent negative responses have been documented in the HPI. ROS Other: All systems not noted in ROS Statement are negative. Past Medical History Past Medical History: Hypertension Additional Past Medical History / Comment(s): osteoporosis History of Any Multi-Drug Resistant Organisms: MRSA Date of last positivie culture/infection: 2011 MDRO Source:: leg Past Surgical History: Orthopedic Surgery Additional Past Surgical History / Comment(s): left ankle, right knee, right wrist Past Psychological History: Anxiety Smoking Status: Current every day smoker Past Alcohol Use History: Daily Past Drug Use History: None Reported General Exam - General Exam Comments Initial Comments: Alert and oriented 68-year-old female. No distress. Limitations: no limitations Head exam: Present: atraumatic, normocephalic, normal inspection Eye exam: Present: normal appearance, PERRL, EOMI. Absent: scleral icterus, conjunctival injection, periorbital swelling ENT exam: Present: normal exam Neck exam: Present: normal inspection Respiratory exam: Present: normal lung sounds bilaterally. Absent: respiratory distress, wheezes, rales, rhonchi, stridor Cardiovascular Exam: Present: regular rate GI/Abdominal exam: Present: soft, normal bowel sounds. Absent: distended, tenderness, guarding, rebound, rigid Extremities exam: Present: normal inspection, full ROM, normal capillary refill. Absent: tenderness, pedal edema, joint swelling, calf tenderness Back exam: Present: normal inspection Neurological exam: Present: alert, oriented X3, CN II-XII intact Psychiatric exam: Present: normal affect, normal mood Course Vital Signs 01/07/19 01/07/19 01/07/19 07:34 07:51 08:00 Temperature 98 F 98.2 F Pulse Rate 88 79 Respiratory 18 20 Rate Blood Pressure 137/74 152/113 152/113 O2 Sat by Pulse 98 96 96 Oximetry 01/07/19 01/07/19 08:30 09:17 Temperature Pulse Rate 75 69 Respiratory 20 Rate Blood Pressure 147/109 168/100 O2 Sat by Pulse 97 97 Oximetry Medical Decision Making - Medical Decision Making 68-year-old female male presents today for evaluation for concern for high blood pressure, intermittent headache. Patient has no neurological deficits. No focal or lateralizing findings. Blood pressure upon arrival here was relatively normalized to 140s over 90. Patient has no chest pain shortness yessy th or other complaints this time. She also does state that she has been by her dog wanted to be treated for this. At this time patient's CT of brain angios negative for any acute process. Chest x-ray is negative. EKG shows no changes. Discussed the patient's headache dizziness. Discussed patient's blood pressure doesn't appear to be any concerning or hypertensive emergency numbers. Patient was given 1 dose of her blood pressure medicine today in ER. I discussed the Patient needs to take antibiotic for the dog bite. And the resume her blood pressure medicines and follow-up with her primary care doctor. Taking her blood pressure twice a day. Patient advised rest remain hydrated. - Lab Data Result diagrams: 01/07/19 08:26 01/07/19 08:26 Lab Results 01/07/19 01/07/19 01/07/19 Range/Units 08:26 08:26 08:26 WBC 6.5 (3.8-10.6) k/uL RBC 4.20 (3.80-5.40) m/uL Hgb 13.9 (11.4-16.0) gm/dL Hct 41.3 (34.0-46.0) % MCV 98.4 (80.0-100.0) fL MCH 33.1 (25.0-35.0) pg MCHC 33.6 (31.0-37.0) g/dL RDW 12.4 (11.5-15.5) % Plt Count 296 (150-450) k/uL Neutrophils % 71 % Lymphocytes % 20 % Monocytes % 6 % Eosinophils % 1 % Basophils % 1 % Neutrophils # 4.6 (1.3-7.7) k/uL Lymphocytes # 1.3 (1.0-4.8) k/uL Monocytes # 0.4 (0-1.0) k/uL Eosinophils # 0.1 (0-0.7) k/uL Basophils # 0.1 (0-0.2) k/uL PT 9.7 (9.0-12.0) sec INR 0.9 (<1.2) APTT 22.5 (22.0-30.0) sec Sodium 141 (137-145) mmol/L Potassium 4.4 (3.5-5.1) mmol/L Chloride 106 (98-107) mmol/L Carbon Dioxide 30 (22-30) mmol/L Anion Gap 5 mmol/L BUN 10 (7-17) mg/dL Creatinine 0.69 (0.52-1.04) mg/dL Est GFR (CKD-EPI)AfAm >90 (>60 ml/min/1.73 sqM) Est GFR (CKD-EPI)NonAf >90 (>60 ml/min/1.73 sqM) Glucose 97 (74-99) mg/dL Calcium 9.7 (8.4-10.2) mg/dL Total Bilirubin 0.8 (0.2-1.3) mg/dL AST 26 (14-36) U/L ALT 38 (9-52) U/L Alkaline Phosphatase 73 (38-126) U/L Troponin I (0.000-0.034) ng/mL Total Protein 7.0 (6.3-8.2) g/dL Albumin 4.4 (3.5-5.0) g/dL 01/07/19 Range/Units 08:26 WBC (3.8-10.6) k/uL RBC (3.80-5.40) m/uL Hgb (11.4-16.0) gm/dL Hct (34.0-46.0) % MCV (80.0-100.0) fL MCH (25.0-35.0) pg MCHC (31.0-37.0) g/dL RDW (11.5-15.5) % Plt Count (150-450) k/uL Neutrophils % % Lymphocytes % % Monocytes % % Eosinophils % % Basophils % % Neutrophils # (1.3-7.7) k/uL Lymphocytes # (1.0-4.8) k/uL Monocytes # (0-1.0) k/uL Eosinophils # (0-0.7) k/uL Basophils # (0-0.2) k/uL PT (9.0-12.0) sec INR (<1.2) APTT (22.0-30.0) sec Sodium (137-145) mmol/L Potassium (3.5-5.1) mmol/L Chloride (98-107) mmol/L Carbon Dioxide (22-30) mmol/L Anion Gap mmol/L BUN (7-17) mg/dL Creatinine (0.52-1.04) mg/dL Est GFR (CKD-EPI)AfAm (>60 ml/min/1.73 sqM) Est GFR (CKD-EPI)NonAf (>60 ml/min/1.73 sqM) Glucose (74-99) mg/dL Calcium (8.4-10.2) mg/dL Total Bilirubin (0.2-1.3) mg/dL AST (14-36) U/L ALT (9-52) U/L Alkaline Phosphatase (38-126) U/L Troponin I <0.012 (0.000-0.034) ng/mL Total Protein (6.3-8.2) g/dL Albumin (3.5-5.0) g/dL When compared to previous EKG there are: no significant change Interpretation: normal EKG - Radiology Data Radiology results: report reviewed EKG performed at 8:43 AM shows normal sinus rhythm nonspecific T-wave abnormality. Abnormal EKG. Ventricular rate of 72 bpm. Was 134 ms. QRS duration 82 ms. QT QTc is 350/[address] angios head and neck No significant stenosis in either carotid system. Normal CT of the [place]. X-rays negative for any active cardiothoracic disease. CT of the brain without contrast shows no acute process. Mild degenerative changes are noted. Disposition Clinical Impression: Hypertension, Dog bite Disposition: HOME SELF-CARE Condition: Good Instructions (If sedation given, give patient instructions): Hypertension (ED), Animal Bite (ED) Additional Instructions: Patient advised to resume Blood pressure medicines as discussed. Take the antibiotics for the dog bite. Rest ice and elevate her leg. Follow-up with her primary care doctor within the next 1-2 days. Prescriptions: Amoxicillin/Potassium Clav [Augmentin 875-125 Tablet] 1 tab PO BID #20 tab Is patient prescribed a controlled substance at d/c from ED?: No Referrals: Karma Metzger DO [Primary Care Provider] - 1-2 days Time of Disposition: 10:37
[2019-01-07 08:47] LABS: Basophils # (A) 0.1 k/uL (0-0.2); Basophils % (A) 1 %; Eosinophils # (A) 0.1 k/uL (0-0.7); Eosinophils % (A) 1 %; HCT 41.3 % (34.0-46.0); HGB 13.9 gm/dL (11.4-16.0); Lymphocytes # (A) 1.3 k/uL (1.0-4.8); Lymphocytes % (A) 20 %; MCH 33.1 pg (25.0-35.0); MCHC 33.6 g/dL (31.0-37.0); MCV 98.4 fL (80.0-100.0); Mean Platelet Volume 6.6; Monocytes # (A) 0.4 k/uL (0-1.0); Monocytes % (A) 6 %; Neutrophils # (A) 4.6 k/uL (1.3-7.7); Neutrophils % (A) 71 %; Platelet Count 296 k/uL (150-450); RDW 12.4 % (11.5-15.5); WBC 6.5 k/uL (3.8-10.6)
[2019-01-07 08:54] LABS: ALT 38 U/L (9-52); AST 26 U/L (14-36); African American GFR (CKD) >90 (>60 ml/min/1.73 sqM); Albumin 4.4 g/dL (3.5-5.0); Alkaline Phosphatase 73 U/L (38-126); Anion Gap 5 mmol/L; Blood Urea Nitrogen 10 mg/dL (7-17); Calcium 9.7 mg/dL (8.4-10.2); Carbon Dioxide 30 mmol/L (22-30); Chloride 106 mmol/L (98-107); Glucose 97 mg/dL (74-99); Potassium 4.4 mmol/L (3.5-5.1); Sodium 141 mmol/L (137-145); Total Bilirubin 0.8 mg/dL (0.2-1.3)
[2019-01-07 09:00] LABS: INR 0.9 (<1.2); Prothrombin Time 9.7 sec (9.0-12.0)
[2019-01-07 09:06] LABS: Partial Thromboplastin Time 22.5 sec (22.0-30.0)
--- NOTE | 2019-01-07 09:16 | CT ---
EXAMINATION TYPE: CT brain wo con DATE OF EXAM: 01/07/2019 COMPARISON: NONE HISTORY: Headache CT DLP: 1089.8 mGycm Automated exposure control for dose reduction was used. FINDINGS: There are generalized changes of sulcal prominence and ventriculomegaly, compatible with mild atrophi c change. There is diffuse periventricular white matter lucency, compatible with chronic white matter ischemic change. There is no acute focal lesion, mass effect or midline shift identified. I do not s ee evidence of intracranial blood. Visualized portions of the paranasal sinuses and mastoids are clear. The bony calvarium is intact. IMPRESSION: 1. NO ACUTE INTRACRANIAL ABNORMALITY. 2. MILD DEGENERATIVE CHANGE.
--- NOTE | 2019-01-07 09:17 | XR ---
EXAMINATION TYPE: XR chest 2V DATE OF EXAM: 01/07/2019 HISTORY: headache, dizziness. REFERENCE: Previous study dated 10/07/2017. FINDINGS: The lungs are well-inflated and clear. Pleural space are clear. The heart is not enlarged. IMPRESSION: NO ACTIVE INTRATHORACIC DISEASE.
[2019-01-07] MEDS ORDERED: KETOROLAC 30 MG/ML 1 ML VIAL IVP STA (09:24)
[2019-01-07] MEDS ORDERED: ONDANSETRON 4 MG/2 ML VIAL IVP STA (09:24)
[2019-01-07] MEDS ORDERED: amLODIPine 5 MG TAB PO STA (09:24)
--- NOTE | 2019-01-07 09:42 | CT ---
EXAMINATION TYPE: CT angio head neck DATE OF EXAM: 01/07/2019 HISTORY: Headache COMPARISON: Previous CT scan of earlier today. CT DLP: 394.1 mGycm. Automated Exposure Control for Dose Reduction was Utilized. TECHNIQUE: CTA scan of the neck is performed with IV Contrast, patient injected with 65 mL of Isovue 370, axial images are obtained, coronal and sagittal reformatted images are reviewed. Three-D recons tructed images are created on an independent workstation and reviewed. FINDINGS: Visualized portions of the lungs are clear. Visualized portions of the paranasal sinuses and mastoids are clear. There is a mild reversal of the normal cervical lordosis. Alignment is normal. Atlantoaxial relations hips are normal. There is degenerative disc disease and hypertrophic spondylosis visualized at all levels with relativ e sparing of C2-3. There is uncovertebral joint disease at these levels. The facets are unremarkable. There is a normal origin of the great vessels. The vertebral arteries are codominant. There is minima l plaque at the carotid bulbs bilaterally. There is no hemodynamically significant stenosis in either carotid system. CT of the [place] is normal. 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 Neither po sterior communicating artery is well visualized. Both anterior cerebral arteries are patent. There is normal arborization of the middle cerebral artery. No definite vessel truncation is seen. No sizable aneurysm is seen. IMPRESSION: 1. No significant stenosis in either carotid system. 2. Normal CTA of the [place]. 3. Degenerative changes within the spine.
[2019-01-07] MEDS ORDERED: AMOXIC-POT CLAV 875MG STARTER 2 EACH TABLET PO STA (10:53)
[2019-01-07 11:07] VITALS: BP 172/100; PULSE 76
== END 2019-01-07 11:12 | disposition home or self-care (01) ==
LOC: EC 07:33
DX: I10 Essential (primary) hypertension (principal); S81.851A Open bite, right lower leg, initial encounter; R51 Headache; M81.0 Age-related osteoporosis without current pathological fracture; F41.9 Anxiety disorder, unspecified; F17.200 Nicotine dependence, unspecified, uncomplicated; Z88.8 Allergy status to other drugs, medicaments and biological substances; Z91.048 Other nonmedicinal substance allergy status; Z79.899 Other long term (current) drug therapy; Z86.14 Personal history of Methicillin resistant Staphylococcus aureus infection; W54.0XXA Bitten by dog, initial encounter
CPT/HCPCS: 36415; 93005; 80053; 84484; 85025; 85610; 85730; 71046; 70496; 70450; 70498; 99285; 96374; 96375; 96361; J2405; J1885; Q9967

== ENCOUNTER 2019-06-01 14:28 | Emergency (ER) | payer MEDICARE ==
[2019-06-01 14:33] VITALS: TEMP 99.2
[2019-06-01 15:43] LABS: Amphetamine Screen,Urine Not Detected (NotDetected); Barbiturate Screen,Urine Not Detected (NotDetected); Benzodiazepines Screen,Urine Not Detected (NotDetected); Cocaine Screen,Urine Not Detected (NotDetected); Methadone Screen, Urine Not Detected (NotDetected); Opiate Screen,Urine Not Detected (NotDetected); Oxycodone Screen, Urine Not Detected (NotDetected); Phencyclidine Screen,Urine Not Detected (NotDetected); Tricyclic Antidepressant,Urine Not Detected (NotDetected); Urn Cannabinoid Scrn Detected (NotDetected)
--- NOTE | 2019-06-01 15:54 | ED ---
Anxiety HPI - General Chief Complaint: Anxiety Stated Complaint: anxiety Time Seen by Provider: 06/01/19 14:45 Source: patient, RN notes reviewed Mode of arrival: ambulatory Limitations: no limitations - History of Present Illness Initial Comments: This a 68-year-old female presents emergency Department chief complaint is severe anxiety. Patient states that her anxiety has been worsening. She has anxiety throughout her whole day. She states she wakes up very anxious states that she cannot do anything in her life because of her anxiety. Patient has been placed on antidepressant along with hydroxyzine with no relief. Patient denies being suicidal or homicidal she has mid to marijuana use no alcohol abuse. Denies any physical complaints denies chest pain or shortness breath. Patient's significant other in the room states that it is controlling her life that she barely eats because of her symptoms and she is currently worrying about things that she cannot control. - Related Data Home Medications: Home Medications Medication Instructions Recorded Confirmed Adalimumab [Humira Pen] 40 mg SQ Q14D 11/22/18 06/01/19 Atorvastatin Calcium [Lipitor] 40 mg PO HS 11/22/18 06/01/19 Albuterol Inhaler [Ventolin Hfa 1 puff INHALATION RT-QID PRN 06/01/19 06/01/19 Inhaler] Budesonide/Formoterol Fumarate 1 puff INHALATION RT-BID 06/01/19 06/01/19 [Symbicort 80-4.5 Mcg Inhaler] Citalopram Hydrobromide [CeleXA] 20 mg PO DAILY 06/01/19 06/01/19 hydrOXYzine PAMOATE [Vistaril] 25 mg PO TID PRN 06/01/19 06/01/19 Previous Rx's Medication Instructions Recorded amLODIPine [Norvasc] 5 mg PO DAILY #4 tab 01/06/19 LORazepam [Ativan] 0.5 mg PO TID PRN 3 Days #9 tab 06/01/19 Allergies/Adverse Reactions: Allergies Allergy/AdvReac Type Severity Reaction Status Date / Time prednisone AdvReac Hallucinati Verified 06/01/19 15:57 ons tide laundry detergent Allergy Rash/Hives Uncoded 06/01/19 14:33 Review of Systems ROS Statement: Those systems with pertinent positive or pertinent negative responses have been documented in the HPI. ROS Other: All systems not noted in ROS Statement are negative. Past Medical History Past Medical History: Hypertension Additional Past Medical History / Comment(s): osteoporosis History of Any Multi-Drug Resistant Organisms: MRSA Date of last positivie culture/infection: 2011 MDRO Source:: leg Past Surgical History: Orthopedic Surgery Additional Past Surgical History / Comment(s): left ankle, right knee, right wrist Past Psychological History: Anxiety Smoking Status: Current every day smoker Past Alcohol Use History: None Reported Past Drug Use History: None Reported General Exam Limitations: no limitations General appearance: alert, in no apparent distress, anxious Head exam: Present: atraumatic, normocephalic, normal inspection Eye exam: Present: normal appearance, PERRL, EOMI. Absent: scleral icterus, conjunctival injection, periorbital swelling ENT exam: Present: normal exam, normal oropharynx, mucous membranes moist, TM's normal bilaterally Neck exam: Present: normal inspection, full ROM. Absent: tenderness, meningismus, lymphadenopathy Respiratory exam: Present: normal lung sounds bilaterally. Absent: respiratory distress, wheezes, rales, rhonchi, stridor Cardiovascular Exam: Present: regular rate, normal rhythm, normal heart sounds. Absent: systolic murmur, diastolic murmur, rubs, gallop, clicks GI/Abdominal exam: Present: soft, normal bowel sounds. Absent: distended, tenderness, guarding, rebound, rigid Neurological exam: Present: alert, oriented X3, CN II-XII intact Psychiatric exam: Present: anxious Skin exam: Present: warm, dry, intact, normal color. Absent: rash Course Vital Signs 06/01/19 14:30 Temperature 99.2 F Pulse Rate 90 Respiratory 18 Rate Blood Pressure 126/72 O2 Sat by Pulse 97 Oximetry Medical Decision Making - Medical Decision Making Patient evaluated by EPS and case discussed with psychiatrist recommends the patient to discharged in stable condition. Patient will be provided 3 days worth of Ativan she is advised to call her PCP for further medications and return for any worsening symptoms. - Lab Data Lab Results 06/01/19 Range/Units 13:22 Urine Opiates Screen Not Detected (NotDetected) Ur Oxycodone Screen Not Detected (NotDetected) Urine Methadone Screen Not Detected (NotDetected) Ur Propoxyphene Screen Not Detected (NotDetected) Ur Barbiturates Screen Not Detected (NotDetected) U Tricyclic Antidepress Not Detected (NotDetected) Ur Phencyclidine Scrn Not Detected (NotDetected) Ur Amphetamines Screen Not Detected (NotDetected) U Methamphetamines Scrn Not Detected (NotDetected) U Benzodiazepines Scrn Not Detected (NotDetected) Urine Cocaine Screen Not Detected (NotDetected) U Marijuana (THC) Screen Detected H (NotDetected) Disposition Clinical Impression: Acute anxiety Disposition: HOME SELF-CARE Condition: Stable Instructions (If sedation given, give patient instructions): Generalized Anxiety Disorder (ED) Additional Instructions: Please return to the Emergency Department if symptoms worsen or any other concerns. Prescriptions: LORazepam [Ativan] 0.5 mg PO TID PRN 3 Days #9 tab PRN Reason: Anxiety Is patient prescribed a controlled substance at d/c from ED?: No Referrals: Cole Metzger MD [Primary Care Provider] - 1-2 days Time of Disposition: 17:08
[2019-06-01] MEDS ORDERED: LORazepam 1 MG TAB PO STA (16:31)
[2019-06-01 17:23] VITALS: BP 128/92; PULSE 72; RESP 16
== END 2019-06-01 17:19 | disposition home or self-care (01) ==
LOC: EC 14:28
DX: F41.9 Anxiety disorder, unspecified (principal); F17.200 Nicotine dependence, unspecified, uncomplicated; Z86.14 Personal history of Methicillin resistant Staphylococcus aureus infection; Z79.51 Long term (current) use of inhaled steroids; Z79.899 Other long term (current) drug therapy; Z88.8 Allergy status to other drugs, medicaments and biological substances; Z91.048 Other nonmedicinal substance allergy status
CPT/HCPCS: 80306; 99284

== ENCOUNTER 2019-07-18 16:00 | Inpatient (IN) | payer MEDICARE ==
--- NOTE | 2019-07-18 17:37 | ED ---
Psych HPI - General Chief Complaint: Psychiatric Symptoms Stated Complaint: Mental Health Time Seen by Provider: 07/18/19 17:04 Source: patient Mode of arrival: ambulatory - History of Present Illness Initial Comments: 68 year-old female patient presents to the emergency department today for evaluation of suicidal ideation and depression. Patient states that for the last few months she has been dealing with increased depression, lack of energy, lack of ilan in life, and anxiety. States that she paces the floors, is having difficulty sleeping, and just does not feel like herself. Patient states that for the last few days she has been having thoughts of killing herself. She states that she has been thinking of taking her pills. States that she becomes increasingly fearful of following through when her leaves the house. States her symptoms started in March or April when her started talking about getting a new dog. She states that she feels like this was the trigger even though she loves pets and generally would have said yes. Patient states she did have a time in September and the end of last year when she was extremely energetic and joyful. States that she was up at the earliest hours of the day and was very productive in getting things done. She states that due to her recent feelings and this episode her physician felt she may have bipolar and started her on Vraylar in March. States that she had side effects from this including tremors and lost 30lbs in 2 months without trying. States that they changed dosages and also started seroquel, but this did not seem to help. States that she is not currently taking any medication for her psychiatric symptoms except ativan for her anxiety. Patient denies any recent rash, fever, chills, cough, shortness of breath, chest pain, abdominal pain, nausea, vomiting, diarrhea, constipation, back pain, numbness, tingling, dizziness, weakness, hematuria, dysuria, urinary urgency, urinary frequency, headache, visual changes, or any other complaints. - Related Data Home Medications Medication Instructions Recorded Confirmed Adalimumab [Humira Pen] 40 mg SQ Q14D 11/22/18 06/01/19 Atorvastatin Calcium [Lipitor] 40 mg PO HS 11/22/18 06/01/19 Albuterol Inhaler [Ventolin Hfa 1 puff INHALATION RT-QID PRN 06/01/19 06/01/19 Inhaler] Budesonide/Formoterol Fumarate 1 puff INHALATION RT-BID 06/01/19 06/01/19 [Symbicort 80-4.5 Mcg Inhaler] Citalopram Hydrobromide [CeleXA] 20 mg PO DAILY 06/01/19 06/01/19 hydrOXYzine PAMOATE [Vistaril] 25 mg PO TID PRN 06/01/19 06/01/19 Previous Rx's Medication Instructions Recorded amLODIPine [Norvasc] 5 mg PO DAILY #4 tab 01/06/19 LORazepam [Ativan] 0.5 mg PO TID PRN 3 Days #9 tab 06/01/19 Allergies Allergy/AdvReac Type Severity Reaction Status Date / Time prednisone AdvReac Hallucinati Verified 07/18/19 16:24 ons tide laundry detergent Allergy Rash/Hives Uncoded 07/18/19 16:24 Review of Systems ROS Statement: Those systems with pertinent positive or pertinent negative responses have been documented in the HPI. ROS Other: All systems not noted in ROS Statement are negative. Past Medical History Past Medical History: Hypertension Additional Past Medical History / Comment(s): osteoporosis History of Any Multi-Drug Resistant Organisms: MRSA Date of last positivie culture/infection: 2011 MDRO Source:: leg Past Surgical History: Orthopedic Surgery Additional Past Surgical History / Comment(s): left ankle, right knee, right wrist Past Psychological History: Anxiety, Bipolar, Depression Smoking Status: Current every day smoker Past Alcohol Use History: None Reported Past Drug Use History: None Reported General Exam Limitations: no limitations General appearance: alert, in no apparent distress, other (This is a well- developed, well-nourished adult female patient in no acute distress. Vital signs upon presentation are temperature 98.2F, pulse 105, respirations 18, blood pressure 127/90, pulse ox 98% on room air.) Eye exam: Present: normal appearance, PERRL, EOMI. Absent: scleral icterus, conjunctival injection, nystagmus, periorbital swelling Respiratory exam: Present: normal lung sounds bilaterally. Absent: respiratory distress, wheezes, rales, rhonchi, stridor Cardiovascular Exam: Present: regular rate, normal rhythm, normal heart sounds. Absent: systolic murmur, diastolic murmur, rubs, gallop, clicks GI/Abdominal exam: Present: soft, normal bowel sounds. Absent: distended, tenderness, guarding, rebound, rigid Neurological exam: Present: alert, oriented X3, CN II-XII intact Psychiatric exam: Present: normal affect, normal mood Skin exam: Present: warm, dry, intact, normal color. Absent: rash Course Vital Signs 07/18/19 16:20 Temperature 98.2 F Pulse Rate 105 H Respiratory 18 Rate Blood Pressure 127/90 O2 Sat by Pulse 98 Oximetry Medical Decision Making - Medical Decision Making 68 year-old female patient presented to the emergency department today for evaluation of depression and suicidal ideation. She was seen and evaluated by emergency psychiatric services, she would benefit from inpatient mission will be transferred for mental health unit. Patient is agreeable with this plan. - Lab Data Result diagrams: 07/18/19 17:40 07/18/19 17:40 Lab Results 07/18/19 07/18/19 07/18/19 Range/Units 17:40 17:40 17:40 WBC 8.1 (3.8-10.6) k/uL RBC 4.36 (3.80-5.40) m/uL Hgb 13.9 (11.4-16.0) gm/dL Hct 42.3 (34.0-46.0) % MCV 97.1 (80.0-100.0) fL MCH 31.9 (25.0-35.0) pg MCHC 32.9 (31.0-37.0) g/dL RDW 12.0 (11.5-15.5) % Plt Count 291 (150-450) k/uL Neutrophils % 69 % Lymphocytes % 20 % Monocytes % 8 % Eosinophils % 1 % Basophils % 1 % Neutrophils # 5.6 (1.3-7.7) k/uL Lymphocytes # 1.7 (1.0-4.8) k/uL Monocytes # 0.6 (0-1.0) k/uL Eosinophils # 0.1 (0-0.7) k/uL Basophils # 0.1 (0-0.2) k/uL Sodium 138 (137-145) mmol/L Potassium 4.0 (3.5-5.1) mmol/L Chloride 107 (98-107) mmol/L Carbon Dioxide 22 (22-30) mmol/L Anion Gap 9 mmol/L BUN 16 (7-17) mg/dL Creatinine 0.55 (0.52-1.04) mg/dL Est GFR (CKD-EPI)AfAm >90 (>60 ml/min/1.73 sqM) Est GFR (CKD-EPI)NonAf >90 (>60 ml/min/1.73 sqM) Glucose 104 H (74-99) mg/dL Calcium 9.9 (8.4-10.2) mg/dL Magnesium 2.2 (1.6-2.3) mg/dL Total Bilirubin 0.6 (0.2-1.3) mg/dL AST 29 (14-36) U/L ALT 32 (4-34) U/L Alkaline Phosphatase 70 (38-126) U/L Total Protein 6.6 (6.3-8.2) g/dL Albumin 4.3 (3.5-5.0) g/dL TSH 2.010 (0.465-4.680) mIU/L Urine Color Yellow Urine Appearance Clear (Clear) Urine pH 6.5 (5.0-8.0) Ur Specific [place] 1.014 (1.001-1.035) Urine Protein Negative (Negative) Urine Glucose (UA) Negative (Negative) Urine Ketones Negative (Negative) Urine Blood Negative (Negative) Urine Nitrite Negative (Negative) Urine Bilirubin Negative (Negative) Urine Urobilinogen <2.0 (<2.0) mg/dL Ur Leukocyte Esterase Negative (Negative) Urine Opiates Screen Not Detected (NotDetected) Ur Oxycodone Screen Not Detected (NotDetected) Urine Methadone Screen Not Detected (NotDetected) Ur Propoxyphene Screen Not Detected (NotDetected) Ur Barbiturates Screen Not Detected (NotDetected) U Tricyclic Antidepress Not Detected (NotDetected) Ur Phencyclidine Scrn Not Detected (NotDetected) Ur Amphetamines Screen Not Detected (NotDetected) U Methamphetamines Scrn Not Detected (NotDetected) U Benzodiazepines Scrn Detected H (NotDetected) Urine Cocaine Screen Not Detected (NotDetected) U Marijuana (THC) Screen Not Detected (NotDetected) Disposition Clinical Impression: Depression, Suicidal ideation Disposition: TRANSFER TO PSYCH HOSP/UNIT Condition: Serious Referrals: Cole Metzger MD [Primary Care Provider] - 1-2 days Decision to Admit Reason: Admit from EC Decision Date: 07/18/19 Decision Time: 19:34 - Out of Hospital Transfer - Req. Specs Out of Hospital Transfer - Requested Specifics: [facility]
[2019-07-18 17:58] LABS: Basophils # (A) 0.1 k/uL (0-0.2); Basophils % (A) 1 %; Eosinophils # (A) 0.1 k/uL (0-0.7); Eosinophils % (A) 1 %; HCT 42.3 % (34.0-46.0); HGB 13.9 gm/dL (11.4-16.0); Lymphocytes # (A) 1.7 k/uL (1.0-4.8); Lymphocytes % (A) 20 %; MCH 31.9 pg (25.0-35.0); MCHC 32.9 g/dL (31.0-37.0); MCV 97.1 fL (80.0-100.0); Mean Platelet Volume 8.2; Monocytes # (A) 0.6 k/uL (0-1.0); Monocytes % (A) 8 %; Neutrophils # (A) 5.6 k/uL (1.3-7.7); Neutrophils % (A) 69 %; Platelet Count 291 k/uL (150-450); RBC 4.36 m/uL (3.80-5.40); WBC 8.1 k/uL (3.8-10.6)
[2019-07-18 17:59] LABS: Appearance,Urine Clear (Clear); Bilirubin,Urine Negative (Negative); Blood,Urine Negative (Negative); Color,Urine Yellow; Glucose,Urine (UA) Negative (Negative); Ketones,Urine Negative (Negative); Leukocyte Esterase,Urine Negative (Negative); Nitrite,Urine Negative (Negative); PH, Urine 6.5 (5.0-8.0); Protein,Urine Negative (Negative); Specific Gravity,Urine 1.014 (1.001-1.035); Urobilinogen,Urine <2.0 mg/dL (<2.0)
[2019-07-18 18:09] LABS: ALT 32 U/L (4-34); AST 29 U/L (14-36); African American GFR (CKD) >90 (>60 ml/min/1.73 sqM); Albumin 4.3 g/dL (3.5-5.0); Alkaline Phosphatase 70 U/L (38-126); Anion Gap 9 mmol/L; Blood Urea Nitrogen 16 mg/dL (7-17); Calcium 9.9 mg/dL (8.4-10.2); Carbon Dioxide 22 mmol/L (22-30); Chloride 107 mmol/L (98-107); Glucose 104 mg/dL (74-99); Magnesium 2.2 mg/dL (1.6-2.3); Non-African American GFR(CKD) >90 (>60 ml/min/1.73 sqM); Sodium 138 mmol/L (137-145); Total Bilirubin 0.6 mg/dL (0.2-1.3); Total Protein 6.6 g/dL (6.3-8.2)
[2019-07-18 18:31] LABS: Amphetamine Screen,Urine Not Detected (NotDetected); Barbiturate Screen,Urine Not Detected (NotDetected); Cocaine Screen,Urine Not Detected (NotDetected); Methadone Screen, Urine Not Detected (NotDetected); Opiate Screen,Urine Not Detected (NotDetected); Oxycodone Screen, Urine Not Detected (NotDetected); Phencyclidine Screen,Urine Not Detected (NotDetected); Tricyclic Antidepressant,Urine Not Detected (NotDetected); Urn Cannabinoid Scrn Not Detected (NotDetected)
[2019-07-18 18:32] LABS: Benzodiazepines Screen,Urine Detected (NotDetected)
[2019-07-18] MEDS ORDERED: ACETAMINOPHEN TAB 325 MG TAB PO PRN (20:25)
[2019-07-18] MEDS ORDERED: ZIPRASIDONE 20 MG VIAL IM PRN (20:25)
[2019-07-18] MEDS ORDERED: MAG HYDROX/AL HYDROX/SIMETH 30 ML CUP PO PRN (20:25)
[2019-07-18] MEDS ORDERED: MAGNESIUM HYDROXIDE 2,400 MG/10 ML CUP PO PRN (20:25)
[2019-07-18] MEDS: traZODone HCL 50 MG TAB PO SCH (21:17)
[2019-07-18] MEDS: LORazepam 1 MG TAB PO PRN (21:17)
[2019-07-19 05:45] LABS: Cholesterol 150 mg/dL (<200); HDL Cholesterol 50 mg/dL (40-60); LDL Cholesterol,Calculated 82 mg/dL (0-99); Triglycerides 91 mg/dL (<150)
[2019-07-19] MEDS: NICOTINE 14MG/24HR PATCH TRANSDERM SCH (07:50)
[2019-07-19] MEDS: PREGABALIN 50 MG CAP PO SCH ×3 (09:27→21:52)
[2019-07-19] MEDS: VENLAFAXINE HCL ER 37.5 MG CAP PO SCH (09:27)
[2019-07-19] MEDS: LORazepam 1 MG TAB PO PRN (11:10)
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
[2019-07-19 15:51] VITALS: BMI 23.7
[2019-07-19 21:16] LABS: Hemoglobin A1C 5.5 % (4.0-6.0)
--- NOTE | 2019-07-19 21:29 | P.CONS ---
History of Present Illness - Reason for Consult Consult date: 07/19/19 - Chief Complaint suicidal - History of Present Illness Ginny Adame is a 68 yo F with PMH of depression, HLD, tobacco abuse who presented to the ED complaining of severe anxiety that drove her to the point of suicidal ideation. She states that her inner restlessness and anxiety have gotten to the point that she has had thoughts of taking an entire bottle of her pills. She states her mood worsened around fall, after a brief period of happiness. She did try multiple psychiatric medications including wellbutrin, which she does not feel improved her mood, and vraylar, which she feels initia lly helped but then she developed leg twitching so discontinued this. She continues to smoke cigarettes. Review of Systems All systems: negative Constitutional: Denies chills, Denies fever Eyes: denies blurred vision, denies pain Ears, nose, mouth and throat: Denies headache, Denies sore throat Cardiovascular: Denies chest pain, Denies shortness of breath Respiratory: Denies cough Gastrointestinal: Denies abdominal pain, Denies diarrhea, Denies nausea, Denies vomiting Genitourinary: Denies dysuria, Denies hematuria Musculoskeletal: Denies myalgias Integumentary: Denies pruritus, Denies rash Neurological: Denies numbness, Denies weakness Psychiatric: Reports anxiety, Reports anxiety attacks, Denies depression Endocrine: Denies fatigue, Denies weight change Past Medical History Past Medical History: Hypertension Additional Past Medical History / Comment(s): osteoporosis History of Any Multi-Drug Resistant Organisms: MRSA Year Discovered:: 2011 MDRO Source:: leg Past Surgical History: Orthopedic Surgery Additional Past Surgical History / Comment(s): left ankle, right knee, right wrist Smoking Status: Current every day smoker Medications and Allergies Home Medications Medication Instructions Recorded Confirmed Type Adalimumab [Humira Pen] 40 mg SQ Q14D 11/22/18 06/01/19 History Atorvastatin Calcium [Lipitor] 40 mg PO HS 11/22/18 06/01/19 History amLODIPine [Norvasc] 5 mg PO DAILY #4 tab 01/06/19 06/01/19 Rx Albuterol Inhaler [Ventolin Hfa 1 puff INHALATION RT-QID PRN 06/01/19 06/01/19 History Inhaler] Budesonide/Formoterol Fumarate 1 puff INHALATION RT-BID 06/01/19 06/01/19 History [Symbicort 80-4.5 Mcg Inhaler] Citalopram Hydrobromide [CeleXA] 20 mg PO DAILY 06/01/19 06/01/19 History LORazepam [Ativan] 0.5 mg PO TID PRN 3 Days #9 tab 06/01/19 Rx hydrOXYzine PAMOATE [Vistaril] 25 mg PO TID PRN 06/01/19 06/01/19 History Allergies Allergy/AdvReac Type Severity Reaction Status Date / Time prednisone AdvReac Hallucinati Verified 07/18/19 22:02 ons tide laundry detergent Allergy Rash/Hives Uncoded 07/18/19 22:02 Physical Exam Vitals: Vital Signs Temp Pulse Resp BP Pulse Ox 07/19/19 12:10 97.2 F L 07/19/19 11:05 112 H 101/63 07/19/19 06:46 98.4 F 72 16 114/66 99 07/18/19 21:27 97.4 F L 74 18 139/88 98 Intake and Output 07/19/19 07/19/19 07/19/19 06:59 14:59 22:59 Other: Weight 66.6 kg General: elderly female in NAD. Vitals reviewed Eyes: PERRL, EOMI, conjunctiva normal HENT: normocephalic, mucus membranes moist Neck: supple, no JVD Lungs: normal respiratory effort, no wheezes or rales CV: Regular rate and rhythm, no murmur. Peripheral pulses 2+ Abdomen: soft, nondistended, no organomegaly Lymph: no cervical or axillary LAD Skin: warm and dry. Neuro: A&Ox3, anxious mood and affect Results CBC & Chem 7: 07/18/19 17:40 07/18/19 17:40 Assessment and Plan (1) Depression Current Visit: Yes Status: Acute Code(s): F32.9 - MAJOR DEPRESSIVE DISORDER, SINGLE EPISODE, UNSPECIFIED SNOMED Code(s): 52689904 (2) Suicidal ideation Current Visit: Yes Status: Acute Code(s): R45.851 - SUICIDAL IDEATIONS SNOMED Code(s): 6527294 (3) Hyperlipidemia Current Visit: Yes Status: Acute Code(s): E78.5 - HYPERLIPIDEMIA, UNSPECIFIED SNOMED Code(s): 72580519 (4) Tobacco abuse Current Visit: Yes Status: Acute Code(s): Z72.0 - TOBACCO USE SNOMED Code(s): 829629041 Plan: 1. Suicidal ideation. Major depression. Your management 2. HLD. Continue lipitor qhs 3. Tobacco abuse. NRT
[2019-07-19] MEDS: traZODone HCL 50 MG TAB PO SCH (21:51)
[2019-07-19] MEDS: ATORVASTATIN 40 MG TAB PO SCH (21:51)
[2019-07-20] MEDS: PREGABALIN 50 MG CAP PO SCH ×3 (08:34→21:06)
[2019-07-20] MEDS: NICOTINE 14MG/24HR PATCH TRANSDERM SCH (08:34)
[2019-07-20] MEDS: VENLAFAXINE HCL ER 37.5 MG CAP PO SCH (08:34)
--- NOTE | 2019-07-20 13:51 | P.PN ---
Progress Note - Text Progress Note Date: 07/20/19 Clinical Problems: Major depressive disorder single episode severe with anxious distress, rule out generalized anxiety disorder, rule out panic disorder, rule out bipolar disorder depressed Interim history: I reviewed the medical record, interviewed the patient and discuss her treatment and treatment plan during team meeting. She described a decrease in restlessness and "leg tremor" after the first 2 doses of Lyrica. She feels less depressed and hopeless. She denied having suicidal thoughts. She requested discharge alleging she feels that she is on the "right track". I explained that I am reluctant to discharge her because we just started treatment and she has not fully responded to treatment. Mental status exam: She presented as a casually groomed elderly woman dressed in hospital gown. She made eye contact and attended the interview. She was not restless or fidgety. She had a sad facial expression. She showed psychomotor retardation but no abnormal movements. His speech was spontaneous with decreased rate and volume. Affect was depressed and minimally reactive. She denied suicidal ideation and wishes. She denied homicidal ideation. She denied feeling hopeless, helpless or worthless. She did not express ideas reference, paranoid ideation or delusions. Her thinking was concrete but her associations were coherent and logical. She denied hallucinations and did not appear to be responding to internal stimuli. Assessment: She appears to be having initial response to the current treatment regimen Plan: continue inpatient treatment. If she continues to improve consider discharge on 07/23/2019. Continue safety precautions. Continue Effexor XR 37.5 mg daily and Lyrica 50 mg 3 times a day and titrate both according to clinical response and tolerance.encourage participation in therapeutic groups and activities. Evaluate clinical status response to treatment daily basis.
[2019-07-20] MEDS: traZODone HCL 50 MG TAB PO SCH (21:05)
[2019-07-20] MEDS: ATORVASTATIN 40 MG TAB PO SCH (21:05)
[2019-07-21] MEDS: PREGABALIN 50 MG CAP PO SCH ×3 (08:46→21:12)
[2019-07-21] MEDS: NICOTINE 14MG/24HR PATCH TRANSDERM SCH (08:46)
[2019-07-21] MEDS: VENLAFAXINE HCL ER 37.5 MG CAP PO SCH (08:46)
[2019-07-21] MEDS: LORazepam 1 MG TAB PO PRN (08:46)
--- NOTE | 2019-07-21 17:42 | P.PN ---
Progress Note - Text Progress Note Date: 07/21/19 Interval history: Patient is seen in cross coverage today. She reports that prior to admission she was feeling very shaky and restless which is now resolved. She does describe that her mood overall is doing better. She does talk about wanting to be discharged and feels that she will be ready for this on Tuesday. She does not seem to voice any current adverse psychotropic medication side effects. Mental status exam: She is alert and cooperative with the interview. Her speech is fluent, not rapid or pressured. Thought processes are organized. She denies any current thoughts of harm to self or others. No evidence of psychosis or agitation. Plan: Patient will be maintained on current psychotropic medication regimen. Continue to monitor for any medication side effects monitor her ongoing response to treatment.
[2019-07-21] MEDS: ATORVASTATIN 40 MG TAB PO SCH (21:12)
[2019-07-21] MEDS: traZODone HCL 50 MG TAB PO SCH (21:12)
[2019-07-22 06:38] VITALS: RESP 16
[2019-07-22] MEDS: NICOTINE 14MG/24HR PATCH TRANSDERM SCH (08:36)
[2019-07-22] MEDS: VENLAFAXINE HCL ER 37.5 MG CAP PO SCH (08:36)
[2019-07-22] MEDS: PREGABALIN 50 MG CAP PO SCH ×3 (08:36→22:22)
[2019-07-22] MEDS: LORazepam 1 MG TAB PO PRN (10:20)
--- NOTE | 2019-07-22 13:51 | P.PN ---
Progress Note - Text Progress Note Date: 07/22/19 Interval history: Patient is seen again in cross coverage today. She says she slept at least 8 hours last night. She seems to be eating enough. She does talk about feeling ready for discharge tomorrow. She does not verbalize any adverse psychotropic medication side effects. She does state that that and her restless that she was feeling is gone. Mental status exam: She is alert and cooperative with the interview. Her speech is fluent, not rapid or pressured. Her thought processes are organized. Her mood she describes as "anxious" to be discharged. She does describe her mood is doing better overall. She denies any thoughts of harm to self or others. She does not display any evidence of psychosis or agitation. Plan: Patient will be maintained on current psychotropic medication regimen. Continue to monitor for any medication side effects and monitor her ongoing response to treatment. Look for discharge planning for tomorrow.
[2019-07-22] MEDS: ATORVASTATIN 40 MG TAB PO SCH (22:21)
[2019-07-22] MEDS: traZODone HCL 50 MG TAB PO SCH (22:21)
[2019-07-23 06:47] VITALS: BP 121/65; PULSE 60; TEMP 98
[2019-07-23] MEDS: PREGABALIN 50 MG CAP PO SCH (08:23)
[2019-07-23] MEDS: NICOTINE 14MG/24HR PATCH TRANSDERM SCH (08:23)
[2019-07-23] MEDS: VENLAFAXINE HCL ER 37.5 MG CAP PO SCH (08:23)
--- NOTE | 2019-07-23 15:18 | P.DS ---
Providers Date of admission: 07/18/19 20:11 Attending physician: Doe Payan MD Consults: 07/18/19 20:25 Consult Physician Routine Consulting Provider: Cole Metzger Consult Reason/Comments: H&P for mental health admission Do you want consulting provider notified?: Yes Primary care physician: Cole Metzger MD - Discharge Diagnosis(es) (1) Major depressive disorder, recurrent severe without psychotic features Status: Acute Priority: High Hospital Course: She is a 68-year-old female admitted to the psychiatric unit voluntarily with complaints of depression, anxiety and suicidal ideation. She began the interview by stating that she wanted to come to the hospital because she needed to see a psychiatrist sooner than her appointment in July. She described increasing anxiety, restlessness and depression. She complained of marked restlessness, tremors and symptoms consistent with akathisia after her primary care provider prescribed her Vrylar and Seroquel for the treatment of her depression and anxiety. Apparently, the primary thought that she had a bipolar illness and that her current symptoms are related to a bipolar depression. She described classic symptoms of a major depressive disorder including feelings of sadness, impaired concentration, loss of interest, restlessness, tension, decreased appetite, weight loss and thoughts of suicide. These symptoms have developed an worse the last 2-3 months. Her apparently urged her to come to the emergency room because she she had told that she feels "so bad" that she had thought about taking all her medications. She doesn't think that she will follow through but it was disconcerting enough that her urgerd her to come to the hospitalization. She also described symptoms of anxiety including tremor, restlessness, fatigue, muscle tension, dry mouth and shortness of breath. She denied experiencing periods of increased anxiety suggestive of panic attacks. She denied obsessions or compulsions. She was very happy at the beginning of the year when she had her moved into a new home. During this time she was more energetic and needed less sleep. She denied that friends or family expressed concern about her or her behavior. She denied that she experienced such hypomanic symptoms as grandiosity, pressured speech, racing thoughts, or involvement in activities with a high potential for painful consequences. She denied experiencing psychotic symptoms such as auditory, visual or olfactory hallucinations, ideas reference, thought insertion set her up. She has history of social alcohol use but has not been drinking since she became unwell. She denied that friends or family have expressed concern about her alcohol use. She is never been any substance abuse treatment program. She denied the use of drugs except for for occasional marijuana. This is her first psychiatric hospitalization. She denied history of psychiatric treatment. Her primary care provider has prescribed antidepressants for the treatment of depression including Celexa, Wellbutrin and Paxil. She reported these medications were not effective. Her primary is also prescribed second-generation antipsychotics for presumed diagnosis of bipolar illness. She met with a counselor several years ago after her son from a heroin overdose. We admitted her to the psychiatric unit under care of this abstract writer. Provided a copy a biopsychosocial assessment. The is consultant just completed initial physical exam and medical history and diagnosis hyperlipidemia. He recommended to continue Lipitor. We treated her depression with combination of Effexor XR 37.5 mg and Desyrel 50 mg at bedtime. We treated her complains of anxiety with because Lyrica beginning at 50 mg by mouth 3 times a day. She reported a marked reduction in her anxiety with the dose of Lyrica. She posed no management problem and has no episodes of behavioral dyscontrol. She repeatedly complained about her experiences on the unit. She felt that other patients were much more ill than she. Attempt discharge she denied feeling depressed or having thoughts of or suicide. She feels much less anxious and hopeless for the future. Patient Condition at Discharge: Serious Plan - Discharge Summary New Discharge Prescriptions: New traZODone HCL [Desyrel] 50 mg PO HS #30 tab Venlafaxine HCl ER [Effexor XR] 75 mg PO DAILY #30 cap.er.24h Pregabalin [Lyrica] 50 mg PO TID #90 cap Continue Atorvastatin Calcium [Lipitor] 40 mg PO HS Adalimumab [Humira(Cf) Pen] 40 mg SQ Q14D Albuterol Inhaler [Ventolin Hfa Inhaler] 1 puff INHALATION RT-QID PRN PRN Reason: Shortness Of Breath Budesonide/Formoterol Fumarate [Symbicort 80-4.5 Mcg Inhaler] 1 puff INHALATION RT-BID Discontinued amLODIPine [Norvasc] 5 mg PO DAILY #4 tab hydrOXYzine PAMOATE [Vistaril] 25 mg PO TID PRN PRN Reason: Anxiety Citalopram Hydrobromide [CeleXA] 20 mg PO DAILY LORazepam [Ativan] 0.5 mg PO TID PRN 3 Days #9 tab PRN Reason: Anxiety Discharge Medication List Adalimumab [Humira(Cf) Pen] 40 mg SQ Q14D 11/22/18 [History] Atorvastatin Calcium [Lipitor] 40 mg PO HS 11/22/18 [History] Albuterol Inhaler [Ventolin Hfa Inhaler] 1 puff INHALATION RT-QID PRN 06/01/19 [History] Budesonide/Formoterol Fumarate [Symbicort 80-4.5 Mcg Inhaler] 1 puff INHALATION RT-BID 06/01/19 [History] Pregabalin [Lyrica] 50 mg PO TID #90 cap 07/23/19 [Rx] Venlafaxine HCl ER [Effexor XR] 75 mg PO DAILY #30 cap.er.24h 07/23/19 [Rx] traZODone HCL [Desyrel] 50 mg PO HS #30 tab 07/23/19 [Rx] Follow up Appointment(s)/Referral(s): Counseling, [place] [Other] - 07/25/19 11:00 am (Jasmin Mckeon) Psychiat[facility], [place] [Other] - 07/26/19 12:30 pm (Joy KAUR Please arrive at 12:30 for paperwork ) Cole Metzger MD [Primary Care Provider] - 1-2 days Patient Instructions/Handouts: Depression (DC), Suicide Prevention (DC) Activity/Diet/Wound Care/Special Instructions: Activity and diet as tolerated. Avoid the use of street drugs and alcohol. Take all medications as prescribed. When you are in need of refills on your medicat ions please contact your medical provider and/or outpatient psychiatrist to have this done. Please go to scheduled outpatient appointment for aftercare treatment. If symptoms return or become worse, call the crisis line at and/or go to the nearest emergency room for evaluation Discharge Disposition: HOME SELF-CARE
[2019-07-24] MEDS ORDERED: VENLAFAXINE HCL ER 75 MG CAP PO SCH (09:00)
== END 2019-07-23 12:25 | disposition home or self-care (01) | DRG 885 ==
LOC: EC 16:00 → 3MHU 20:11
PROVIDERS: ADMIT Psychiatry & Neurology Psychiatry; ATTEND Psychiatry & Neurology Psychiatry
DX: F33.2 Major depressive disorder, recurrent severe without psychotic features (principal); R45.851 Suicidal ideations; E11.9 Type 2 diabetes mellitus without complications; E78.5 Hyperlipidemia, unspecified; F17.210 Nicotine dependence, cigarettes, uncomplicated; F41.9 Anxiety disorder, unspecified; I10 Essential (primary) hypertension; J44.9 Chronic obstructive pulmonary disease, unspecified; M81.0 Age-related osteoporosis without current pathological fracture; Z79.51 Long term (current) use of inhaled steroids; Z79.899 Other long term (current) drug therapy; Z88.8 Allergy status to other drugs, medicaments and biological substances; Z91.048 Other nonmedicinal substance allergy status; Z86.14 Personal history of Methicillin resistant Staphylococcus aureus infection; Z81.8 Family history of other mental and behavioral disorders
CPT/HCPCS: 36415; 80053; 80061; 80306; 81003; 82075; 83036; 83735; 84443; 85025; 99285

== ENCOUNTER 2020-02-21 09:16 | Emergency (ER) | payer MEDICARE ==
[~2020-02-21 09:16] MED LIST: DEXTROSE 5% IN WATER 250 ML BAG IV ONE; EPINEPHrine 10 ML SYRINGE (0.1 MG/ML) ONE; NOREPINEPHRINE 1 MG/ML 4 ML VIAL IV ONE; SODIUM BICARB 8.4% 50 ML SYR (1 MEQ/ML) ONE
--- NOTE | 2020-02-21 10:02 | ED ---
General Adult HPI - General Chief complaint: Cardiac Arrest/CPR Stated complaint: cardiac arrest Time Seen by Provider: 02/21/20 09:16 Source: EMS, RN notes reviewed Mode of arrival: EMS Limitations: altered mental status, physical limitation - History of Present Illness Initial comments: Patient is an unresponsive 69-year-old female presenting to the emergency department. Patient was brought in by EMS. Patient apparently witnessed becoming unresponsive by family. Patient remains unresponsive and unable to provide any history. Episode occurred 8:20 AM. EMS provided 3 appendectomy and they did have a pulse back with concern for possible STEMI. They did lose pulses again. Patient was intubated. Patient reportedly only has history of high cholesterol level. And anxiety. Patient had no illness prior to onset of symptoms. - Related Data Allergies Allergy/AdvReac Type Severity Reaction Status Date / Time Unable to Assess Allergy Verified 02/21/20 09:28 Review of Systems ROS Statement: Those systems with pertinent positive or pertinent negative responses have been documented in the HPI. ROS Other: All systems not noted in ROS Statement are negative. Limitations: ROS unobtainable due to patients medical condition Past Medical History Past Medical History: Unable to Obtain History of Any Multi-Drug Resistant Organisms: Unobtainable Past Surgical History: Unable to Obtain Past Psychological History: Unable to Obtain Smoking Status: Unknown if ever smoked General Exam Limitations: altered mental status, physical limitation General appearance: obtunded Head exam: Present: atraumatic Eye exam: Present: other (Pupils are fixed and dilated) ENT exam: Present: normal oropharynx Neck exam: Present: normal inspection Respiratory exam: Present: other (No spontaneous breath sounds. Equal breath sounds with bagging insufflation) Cardiovascular Exam: Present: other (No pulse. No heart sounds) GI/Abdominal exam: Present: soft. Absent: distended, tenderness Extremities exam: Present: normal inspection Neurological exam: Present: other (Unresponsive. GCS 3.) Psychiatric exam: Present: other (Unresponsive) Skin exam: Absent: rash Course - Reevaluation(s) Reevaluation #1: 02/21/20 10:01 Patient did have prolonged CPR in the emergency department, over half an hour. Patient at one point appeared to have V. fib and was shocked. Pulse did return for a short time and EKG was obtained. This was lost again. There was some hard activity with ultrasound. At this time it is been over an hour and a half of down time. Further resuscitation is felt to be futile. Family is present and this was discussed with them and they are in agreement. Family is now at bedside. 02/21/20 10:19 And 1010 patient was found with asystole. No heart sounds. No spontaneous breaths. No response to pain. No pulse. Pupils are fixed and dilated. Time of is 1010. Case was discussed with Cole Campbell, who is familiar with patient 02/21/20 10:38 Case was also discussed with outside medical sales representative Sherry who is okay with releasing the body. EKG Findings - EKG Comments: EKG Findings:: Irregular rhythm with wide complex QRS, rate 87. QRS to 12. QT 544. QTC 64. Left axis. Nonspecific intraventricular block. Nonspecific ST- T. Medical Decision Making - Lab Data Result diagrams: 02/21/20 09:57 02/21/20 09:57 Lab Results 02/21/20 02/21/20 02/21/20 Range/Units 09:57 09:57 09:57 WBC 11.8 H (3.8-10.6) k/uL RBC 4.48 (3.80-5.40) m/uL Hgb 14.5 (11.4-16.0) gm/dL Hct 49.1 H (34.0-46.0) % MCV 109.5 H (80.0-100.0) fL MCH 32.3 (25.0-35.0) pg MCHC 29.5 L (31.0-37.0) g/dL RDW 11.9 (11.5-15.5) % Plt Count 106 L (150-450) k/uL MPV 9.0 Hypochromasia Marked Macrocytosis Moderate PT 11.5 (9.0-12.0) sec INR 1.1 (<1.2) APTT 40.7 H (22.0-30.0) sec Sodium 141 (137-145) mmol/L Potassium 4.0 (3.5-5.1) mmol/L Chloride 113 H (98-107) mmol/L Carbon Dioxide 9 L* (22-30) mmol/L Anion Gap 19 mmol/L BUN 16 (7-17) mg/dL Creatinine 1.10 H (0.52-1.04) mg/dL Est GFR (CKD-EPI)AfAm 60 (>60 ml/min/1.73 sqM) Est GFR (CKD-EPI)NonAf 52 (>60 ml/min/1.73 sqM) Glucose 386 H (74-99) mg/dL Calcium 8.4 (8.4-10.2) mg/dL Total Bilirubin 0.5 (0.2-1.3) mg/dL AST 209 H (14-36) U/L ALT 257 H (4-34) U/L Alkaline Phosphatase 82 (38-126) U/L Total Protein 5.4 L (6.3-8.2) g/dL Albumin 3.1 L (3.5-5.0) g/dL Critical Care Time Critical Care Time: Yes Total Critical Care Time: 31 Disposition Clinical Impression: Cardiopulmonary arrest Disposition: Is patient prescribed a controlled substance at d/c from ED?: No Referrals: Karma Metzger DO [Primary Care Provider] - 1-2 days Time of Disposition: 10:20 Preliminary Cause of : Cardiopulmonary arrest
[2020-02-21 10:06] LABS: HCT 49.1 % (34.0-46.0); HGB 14.5 gm/dL (11.4-16.0); Hypochromasia Marked; MCH 32.3 pg (25.0-35.0); MCHC 29.5 g/dL (31.0-37.0); MCV 109.5 fL (80.0-100.0); Macrocytosis Moderate; Platelet Count 106 k/uL (150-450); RBC 4.48 m/uL (3.80-5.40); RDW 11.9 % (11.5-15.5); WBC 11.8 k/uL (3.8-10.6)
[2020-02-21 10:17] LABS: INR 1.1 (<1.2); Partial Thromboplastin Time 40.7 sec (22.0-30.0); Prothrombin Time 11.5 sec (9.0-12.0)
[2020-02-21 10:19] LABS: Albumin 3.1 g/dL (3.5-5.0); Calcium 8.4 mg/dL (8.4-10.2); Total Bilirubin 0.5 mg/dL (0.2-1.3); Total Protein 5.4 g/dL (6.3-8.2)
[2020-02-21 10:50] LABS: Band Neutrophils % 3 %; Eosinophils # (M) 0.24 k/uL (0-0.7); Metamyelocytes # (M) 0.12 k/uL (0); Metamyelocytes % 1 %; Monocytes # (M) 0.35 k/uL (0-1.0); Myelocytes # (M) 0.24 k/uL (0); Myelocytes % 2 %; Neutrophils % (M) 42 %; Nucleated Red Blood Cells 0 /100 WBC (0-0)
[2020-02-21 11:03] LABS: Plasma Cells # (M) 0.12 k/uL (0)
[2020-02-21 11:04] LABS: Lymphocytes # (M) 5.78 k/uL (1.0-4.8); Total Cells Counted 200
[2020-02-21 11:05] LABS: Poikilocytosis (M) Present
== END 2020-02-21 12:06 | disposition expired ==
LOC: EDBD → MERGE 09:16 → EC 09:16
DX: I46.9 Cardiac arrest, cause unspecified (principal)
CPT/HCPCS: 36415; 80053; 84484; 85025; 85610; 85730; 92950; 93005; 94002; 99291